=== PATIENT | female | born 1950 | race Caucasian/White ===

== ENCOUNTER 2018-01-08 21:40 | Inpatient (IN) | payer MEDICARE, OTHER ==
[~2018-01-08] VITALS: Ht 165.1 cm; Wt 61.8 kg
[2018-01-08] MEDS ORDERED: ONDANSETRON ODT 4 MG TAB PO ONE (22:00)
[2018-01-08] MEDS ORDERED: cloNIDine HCL 0.1 MG TAB PO ONE (22:00)
[2018-01-08 22:11] LABS: Basophils # (auto) 0.1 uL; Basophils % (auto) 1.8 % (0.0-2.0); Eosinophils # (auto) 0.1 uL; Eosinophils % (auto) 2.2 % (0.0-7.0); Hematocrit 48.6 % (36.0-46.0); Hemoglobin 16.6 g/dL (12.2-16.2); Lymphocytes # (auto) 2.1 uL; Lymphocytes % (auto) 42.4 % (10.0-50.0); Mean Corpuscular Hemoglobin 31.8 pg (28.0-32.0); Mean Corpuscular Hgb Conc. 34.1 g/dL (32.0-36.0); Mean Corpuscular Volume 93.2 fL (80.0-100.0); Monocytes # (auto) 0.4 uL; Monocytes % (auto) 8.6 % (0.0-12.0); Neutrophils # (auto) 2.2 uL; Nucleated Red Blood Cells % 0.3 %; Platelet Count (auto) 259 10^3/uL (140-450); Red Blood Cells 5.22 10^6/uL (4.0-5.20); Red Cell Distribution Width 13.4 % (11.8-14.3)
[2018-01-08 22:30] LABS: Albumin 3.6 g/dL (3.4-5.0); BUN/Creatinine Ratio 11.4; Bilirubin, Total 0.2 mg/dL (0.2-1.0); Calcium 8.5 mg/dL (8.5-10.1); Magnesium 2.5 mg/dL (1.6-2.6); Potassium 3.3 mmol/L (3.5-5.1); Total Protein 7.2 g/dL (6.4-8.2)
[2018-01-08 22:47] LABS: INR 0.94 (0.9-1.15); Partial Thromboplastin Time 24.5 sec (22.64-33.71); Prothrombin Time 10.2 sec (9.37-12.3)
[2018-01-09] MEDS ORDERED: ALPRAZolam 0.5 MG TAB PO ONE (01:30)
[2018-01-09] MEDS ORDERED: ENOXAPARIN SOD 80 MG/0.8ML SYRINGE SC ONE (02:30)
[2018-01-09] MEDS ORDERED: ASPirin 81 mg TAB PO ONE (02:30)
[2018-01-09] MEDS ORDERED: NITROGLYCERIN 0.4 MG SL TAB SL PRN (03:30)
[2018-01-09] MEDS ORDERED: ONDANSETRON HCL 4 MG/2 ML VIAL IV PRN (03:30)
[2018-01-09] MEDS ORDERED: ASPirin-EC 81 mg tab PO ONE (03:30)
[2018-01-09] MEDS ORDERED: MORPHINE SULFATE 4 MG/ML SYR/VIAL IV PRN (03:30)
[2018-01-09] MEDS ORDERED: ACETAMINOPHEN 500 MG TAB PO PRN (03:30)
[2018-01-09 04:13] LABS: Urine Bacteria NONE SEEN /hpf (None Seen); Urine Blood TRACE /uL (Negative); Urine Specific Gravity 1.003 (1.001-1.035); Urine WBC 1 /hpf (0 - 5)
[2018-01-09 04:15] LABS: Basophils # (auto) 0.1 uL; Basophils % (auto) 0.8 % (0.0-2.0); Eosinophils # (auto) 0.1 uL; Eosinophils % (auto) 0.9 % (0.0-7.0); Hematocrit 49.4 % (36.0-46.0); Lymphocytes # (auto) 1.7 uL; Lymphocytes % (auto) 27.3 % (10.0-50.0); Mean Corpuscular Hemoglobin 32.1 pg (28.0-32.0); Mean Corpuscular Hgb Conc. 34.3 g/dL (32.0-36.0); Mean Corpuscular Volume 93.5 fL (80.0-100.0); Monocytes # (auto) 0.5 uL; Monocytes % (auto) 7.4 % (0.0-12.0); Neutrophils % (auto) 63.6 % (37.0-80.0); Nucleated Red Blood Cells % 0.2 %; Platelet Count (auto) 273 10^3/uL (140-450); Red Blood Cells 5.29 10^6/uL (4.0-5.20); Red Cell Distribution Width 13.1 % (11.8-14.3); White Blood Cell 6.3 10^3/uL (4.4-10.8)
[2018-01-09] MEDS ORDERED: NICOTINE 14 MG/24HR TOPICAL PATCH TD ONE (04:30)
[2018-01-09 04:35] LABS: BUN/Creatinine Ratio 12.1; Calcium 8.7 mg/dL (8.5-10.1); Potassium 4.3 mmol/L (3.5-5.1)
[2018-01-09] MEDS: LORazepam 0.5 MG TAB PO PRN ×2 (05:25→15:42)
[2018-01-09] MEDS: METOPROLOL TARTRATE 25 MG TAB PO SCH ×2 (10:00→22:27)
[2018-01-09] MEDS ORDERED: IBUP800T24 PO (14:22)
[2018-01-09] MEDS ORDERED: ALPR0.5T7 PO (14:22)
[2018-01-09] MEDS: HYDROcodone-ACET 5/325MG TAB PO PRN (18:51)
[2018-01-09] MEDS ORDERED: ENOXAPARIN SOD 80 MG/0.8ML SYRINGE SC SCH (22:00)
[2018-01-09] MEDS: ATORVASTATIN 20 MG TAB PO SCH (22:26)
[2018-01-10 05:46] VITALS: BP 143/82
[2018-01-10] MEDS: LORazepam 0.5 MG TAB PO PRN (05:55)
[2018-01-10] MEDS: NICOTINE 14 MG/24HR TOPICAL PATCH TD SCH (06:18)
[2018-01-10 08:00] VITALS: BP 134/70
[2018-01-10 08:29] VITALS: BP 134/70
[2018-01-10] MEDS: ENOXAPARIN SOD 60 MG/0.6 ML SYRINGE SC SCH ×2 (10:00→21:49)
[2018-01-10] MEDS: HYDROcodone-ACET 5/325MG TAB PO PRN ×2 (10:10→21:53)
[2018-01-10] MEDS: METOPROLOL TARTRATE 25 MG TAB PO SCH ×2 (10:10→21:40)
[2018-01-10] MEDS ORDERED: MORPHINE SULFATE 4 MG/ML SYR/VIAL IV PRN (10:15)
[2018-01-10] MEDS ORDERED: ONDANSETRON HCL 4 MG/2 ML VIAL IV PRN (10:15)
[2018-01-10 12:38] VITALS: BP 130/80
[2018-01-10] MEDS ORDERED: ANGIOMAX 250 MG VIAL IV ONE (13:10)
[2018-01-10] MEDS ORDERED: fentaNYL CITRATE 100 MCG/2 ML VL ONE (13:10)
[2018-01-10] MEDS ORDERED: MIDAZOLAM HCL 1MG/1ML-2 ML VIAL ONE (13:10)
[2018-01-10] MEDS ORDERED: LIDOCAINE 2%HCL (LOCAL ANESTH.) INJ 20ML MDV ONE (13:11)
[2018-01-10] MEDS ORDERED: IOHEXOL 350 MG/ML 100ML IJ ONE (13:11)
[2018-01-10] MEDS ORDERED: TICAGRELOR 90 MG TAB ONE (13:35)
[2018-01-10] MEDS ORDERED: ASPirin 325 MG TAB ONE (13:35)
[2018-01-10 16:41] VITALS: BP 164/76
[2018-01-10 17:59] LABS: Cholesterol 272 mg/dL (< 200); HDL Cholesterol 39 mg/dL (40-59); LDL Cholesterol 185 mg/dL (< 100); Triglycerides 258 mg/dL (< 150)
[2018-01-10] MEDS: TICAGRELOR 90 MG TAB PO SCH (21:40)
[2018-01-10] MEDS: ATORVASTATIN 20 MG TAB PO SCH (21:40)
[2018-01-10 22:00] VITALS: BP 148/87
[2018-01-11 05:00] VITALS: BP 157/82
[2018-01-11] MEDS: LORazepam 0.5 MG TAB PO PRN (06:49)
[2018-01-11 08:00] VITALS: BP 131/88
[2018-01-11 08:24] VITALS: BP_SYST 131; BP_SYST 99; BP_DIAS 62; BP_DIAS 88
[2018-01-11] MEDS: TICAGRELOR 90 MG TAB PO SCH (09:52)
[2018-01-11] MEDS: NICOTINE 14 MG/24HR TOPICAL PATCH TD SCH (09:53)
[2018-01-11] MEDS: METOPROLOL TARTRATE 25 MG TAB PO SCH (09:53)
[2018-01-11] MEDS: ENOXAPARIN SOD 60 MG/0.6 ML SYRINGE SC SCH (09:54)
[2018-01-11] MEDS ORDERED: ASPirin 81 mg TAB PO SCH (10:00)
[2018-01-11 11:32] VITALS: BP 99/62
== END 2018-01-11 12:35 | disposition home or self-care (01) | DRG 247 ==
LOC: EDBD 21:40 → ER 21:46 → TELE 21:47 → TELE-CENTR 01-09 18:00
PROVIDERS: ADMIT Nurse Practitioner Family; ATTEND Family Medicine
PROC: 027034Z Dilation of Coronary Artery, One Artery with Drug-eluting Intraluminal Device, Percutaneous Approach (ICD-10-PCS; principal; 2018-01-10)
PROC: 4A023N7 Measurement of Cardiac Sampling and Pressure, Left Heart, Percutaneous Approach (ICD-10-PCS; 2018-01-10)
PROC: B2111ZZ Fluoroscopy of Multiple Coronary Arteries using Low Osmolar Contrast (ICD-10-PCS; 2018-01-10)
PROC: B2151ZZ Fluoroscopy of Left Heart using Low Osmolar Contrast (ICD-10-PCS; 2018-01-10)
DX: I21.4 Non-ST elevation (NSTEMI) myocardial infarction (principal); D75.1 Secondary polycythemia; E87.1 Hypo-osmolality and hyponatremia; E87.6 Hypokalemia; F17.210 Nicotine dependence, cigarettes, uncomplicated; F41.9 Anxiety disorder, unspecified; I25.10 Atherosclerotic heart disease of native coronary artery without angina pectoris; R51 Headache; Z71.6 Tobacco abuse counseling
CPT/HCPCS: 36415; 70450; 71045; 80048; 80053; 80061; 80320; 81001; 83735; 83880; 84484; 85025; 85610; 85730; 93005; 93306; 93458; 96372; 96374; 99152; C1874; J2250; Q0162

== ENCOUNTER → 2018-02-26 | Outpatient (CLI) | payer MEDICARE ==
[~2018-02-26] MED LIST: ALPR0.5T7 PO; IBUP800T24 PO
== END | disposition home or self-care (01) ==
LOC: Rad HDHVI 15:11
PROVIDERS: ATTEND Internal Medicine Cardiovascular Disease
DX: I20.9 Angina pectoris, unspecified (principal); E78.5 Hyperlipidemia, unspecified; F17.210 Nicotine dependence, cigarettes, uncomplicated
CPT/HCPCS: 93306

== ENCOUNTER → 2018-02-27 | Outpatient (CLI) | payer MEDICARE ==
[~2018-02-27] VITALS: Ht 170.2 cm; Wt 62.6 kg
[~2018-02-27] MED LIST changes: +ADENOSINE 53 MG in GIVE UN-DILUTED 0 ML IV ONE; +ADENOSINE 90 MG/30 ML INJ IV ONE
== END | disposition home or self-care (01) ==
LOC: Rad HDHVI 09:05
PROVIDERS: ATTEND Internal Medicine Cardiovascular Disease
DX: I20.9 Angina pectoris, unspecified (principal); E78.5 Hyperlipidemia, unspecified; F17.210 Nicotine dependence, cigarettes, uncomplicated
CPT/HCPCS: 78452; 93005; 96374; 96375; A9500; J0153

== ENCOUNTER → 2018-08-07 | Outpatient (CLI) | payer MEDICARE ==
[~2018-08-07] MED LIST changes: -ADENOSINE 53 MG in GIVE UN-DILUTED 0 ML IV ONE; -ADENOSINE 90 MG/30 ML INJ IV ONE
[2018-08-07 13:01] LABS: Urine Blood Negative /uL (Negative); Urine Specific Gravity 1.019 (1.001-1.035)
[2018-08-07 13:06] LABS: Basophils # (auto) 0 uL; Basophils % (auto) 0.3 % (0.0-2.0); Eosinophils # (auto) 0.1 uL; Hematocrit 43.9 % (36.0-46.0); Hemoglobin 15.1 g/dL (12.2-16.2); Lymphocytes # (auto) 1.1 uL; Lymphocytes % (auto) 21.9 % (10.0-50.0); Mean Corpuscular Hemoglobin 33.4 pg (28.0-32.0); Mean Corpuscular Hgb Conc. 34.4 g/dL (32.0-36.0); Mean Corpuscular Volume 97.2 fL (80.0-100.0); Monocytes # (auto) 0.4 uL; Monocytes % (auto) 7.1 % (0.0-12.0); Neutrophils # (auto) 3.5 uL; Neutrophils % (auto) 69.7 % (37.0-80.0); Nucleated Red Blood Cells % 0.2 %; Platelet Count (auto) 381 10^3/uL (140-450); Red Blood Cells 4.51 10^6/uL (4.0-5.20); Red Cell Distribution Width 16.1 % (11.8-14.3)
[2018-08-07 13:09] LABS: INR 0.92 (0.9-1.15); Partial Thromboplastin Time 27.2 sec (23.78-33.04); Prothrombin Time 9.9 sec (9.27-12.13)
[2018-08-07 14:13] LABS: Free T4 (Free Thyroxine) 1.05 ng/dL (0.89-1.76)
[2018-08-07 14:17] LABS: Albumin 4.4 g/dL (3.4-5.0); BUN/Creatinine Ratio 23.9; Bilirubin, Total 0.7 mg/dL (0.2-1.0); Calcium 9.1 mg/dL (8.5-10.1); Potassium 3.6 mmol/L (3.5-5.1); Total Protein 8.2 g/dL (6.4-8.2)
== END | disposition home or self-care (01) ==
LOC: LAB 10:05
PROVIDERS: ATTEND Internal Medicine Cardiovascular Disease
DX: Z00.01 Encounter for general adult medical examination with abnormal findings (principal); R79.1 Abnormal coagulation profile; E03.9 Hypothyroidism, unspecified; E11.9 Type 2 diabetes mellitus without complications; E55.9 Vitamin D deficiency, unspecified; D51.9 Vitamin B12 deficiency anemia, unspecified; N39.0 Urinary tract infection, site not specified
CPT/HCPCS: 36415; 80053; 80061; 81003; 82306; 82607; 83036; 84439; 84443; 85025; 85610; 85730; 87086

== ENCOUNTER → 2018-12-30 | Outpatient (CLI) | payer MEDICARE ==
[~2018-12-30] MED LIST changes: +MVI in SODIUM CHLORIDE 0.9% 1,000 ML IVB ONE; +MVI in SODIUM CHLORIDE 0.9% 1,010 ML ONE
[2018-12-30 15:43] VITALS: BP 106/54
--- NOTE | 2018-12-30 15:43 | NUR ---
TO CLINIC FOR IV HYDRATION. IV insertion IV access obtained, via clean sterile technique by inserting 22 gauge catheter at after attempt(s). IV secured properly. No trauma to site. Patient tolerated procedure well.MEDICATED PER ORDER AND TOLERATED WELL. PT REPORTS ANXIETY AND HAS NEW MEDICATION SAMPLES LINZESS GIVEN BY MD. SEE FREQUENT VITAL SIGNS. TOLERATED INFUSION WELL. PT WAS AWAKE DURING ENTIRE INFUSION, TALKING ON PHONE AT TIMES. PHONE CONVERSATIONS ABRUPT AND LOUD WITH OCCASIONAL FOUL LANGUAGE. UPON COMPLETION OF INFUSION, PT REPORTS DIZZINESS STILL. NO APPARENT DISTRESS NOTED OTHER THAN STATED. DISCHARGED TO CARE OF FAMILY. PT HAS INSTRUCTIONS TO TAKE ONLY 1/2 DOSE OF HER BP MED [facility]BYCLOR AND TO RETURN TO CLINIC NEXT SUNDAY FOR FOLLOWUP, SOONER IF NEEDED. REPEAT BACK INSTRUCTIONS OBTAINED. MEDICATION ADMINISTRATION 0.9 NS WITH MVI 1 LITER START AT 1245/STOP AT 1543
== END | disposition home or self-care (01) ==
LOC: CHF HDHVI 12:41
PROVIDERS: ATTEND Internal Medicine Cardiovascular Disease
DX: E86.0 Dehydration (principal); R42 Dizziness and giddiness; R53.83 Other fatigue; I25.2 Old myocardial infarction; I25.10 Atherosclerotic heart disease of native coronary artery without angina pectoris; E11.9 Type 2 diabetes mellitus without complications; E03.9 Hypothyroidism, unspecified; F41.9 Anxiety disorder, unspecified; E78.5 Hyperlipidemia, unspecified; F17.210 Nicotine dependence, cigarettes, uncomplicated
CPT/HCPCS: 96365; 96366; G0463; J3411; J3475

== ENCOUNTER → 2019-01-06 | Outpatient (CLI) | payer MEDICARE ==
[~2019-01-06] MED LIST changes: -MVI in SODIUM CHLORIDE 0.9% 1,000 ML IVB ONE; -MVI in SODIUM CHLORIDE 0.9% 1,010 ML ONE; +SODIUM CHLORIDE 0.9% 1,000 ML IV ONE
[2019-01-06 11:50] VITALS: BP 80/53
--- NOTE | 2019-01-06 11:50 | NUR ---
IV insertion IV access obtained, via clean sterile technique by inserting 22 gauge catheter at RFA after 1 attempt(s). IV secured properly. No trauma to site. Patient tolerated procedure well.
--- NOTE | 2019-01-06 15:25 | NUR ---
IV removal IV DC'd with sterile technique, catheter fully intact. Pressure dressing applied to site. Patient tolerated procedure well.
[2019-01-06 15:30] VITALS: BP 122/68
--- NOTE | 2019-01-06 15:30 | NUR ---
[facility] Discharge Instructions See e-MAR for any mediations given with this visit. Patient education given on disease process. Patient verbalized understanding. Previous labs reviewed. Patient discharged in stable condition with after care instructions and follow up appointment. NOTE NS [id number] ADMIN BY YULI RAMOS.
== END | disposition home or self-care (01) ==
LOC: CHF HDHVI 11:23
PROVIDERS: ATTEND Internal Medicine Cardiovascular Disease
DX: E86.0 Dehydration (principal); I95.9 Hypotension, unspecified; E03.9 Hypothyroidism, unspecified; E78.5 Hyperlipidemia, unspecified; F41.9 Anxiety disorder, unspecified; I25.10 Atherosclerotic heart disease of native coronary artery without angina pectoris; I25.2 Old myocardial infarction; E11.9 Type 2 diabetes mellitus without complications; F17.210 Nicotine dependence, cigarettes, uncomplicated
CPT/HCPCS: 96360; 96361; G0463; J7030

== ENCOUNTER → 2019-05-16 | Outpatient (CLI) | payer MEDICARE ==
[~2019-05-16] MED LIST changes: -SODIUM CHLORIDE 0.9% 1,000 ML IV ONE
== END | disposition home or self-care (01) ==
LOC: Rad HDHVI 10:33
PROVIDERS: ATTEND Internal Medicine Cardiovascular Disease
DX: I25.5 Ischemic cardiomyopathy (principal); I20.9 Angina pectoris, unspecified; I95.9 Hypotension, unspecified
CPT/HCPCS: 93306

== ENCOUNTER → 2020-06-07 | Outpatient (CLI) | payer MEDICARE | END | disposition home or self-care (01) | LOC: Rad HDHVI 11:50 | PROVIDERS: ATTEND Internal Medicine Cardiovascular Disease | DX: M76.892 Other specified enthesopathies of left lower limb, excluding foot (principal); M25.462 Effusion, left knee; M25.762 Osteophyte, left knee; M85.88 Other specified disorders of bone density and structure, other site | CPT/HCPCS: 73700 ==

== ENCOUNTER → 2020-06-14 | Outpatient (CLI) | payer MEDICARE ==
[2020-06-14 12:20] LABS: Urine Blood 1+ /uL (Negative); Urine Specific Gravity 1.008 (1.001-1.035)
[2020-06-14 12:21] LABS: Basophils # (auto) 0 10 ^3/uL (0-0.2); Basophils % (auto) 0.4 % (0.0-2.0); Eosinophils # (auto) 0 10 ^3/uL (0-0.8); Lymphocytes # (auto) 1.6 10 ^3/uL (0.4-5.4); Monocytes # (auto) 0.4 10 ^3/uL (0-1.3); Neutrophils # (auto) 5.5 10 ^3/uL (1.6-8.6); White Blood Cell 7.5 10^3/uL (4.4-10.8)
[2020-06-14 12:22] LABS: Albumin 3.7 g/dL (3.4-5.0)
[2020-06-14 12:23] LABS: Eosinophils % (auto) 0.5 % (0.0-7.0); Hemoglobin 12.4 g/dL (12.2-16.2); Lymphocytes % (auto) 20.9 % (10.0-50.0); Mean Corpuscular Hemoglobin 34.1 pg (28.0-32.0); Mean Corpuscular Hgb Conc. 33.5 g/dL (32.0-36.0); Mean Corpuscular Volume 101.9 fL (80.0-100.0); Monocytes % (auto) 4.9 % (0.0-12.0); Neutrophils % (auto) 73.3 % (37.0-80.0); Nucleated Red Blood Cells % 0.1 %; Platelet Count (auto) 236 10^3/uL (140-450); Red Blood Cells 3.63 10^6/uL (4.0-5.20); Red Cell Distribution Width 14.4 % (11.8-14.3)
[2020-06-14 12:29] LABS: BUN/Creatinine Ratio 7.1; Bilirubin, Total 0.4 mg/dL (0.2-1.0); Calcium 8.6 mg/dL (8.5-10.1); Total Protein 6.6 g/dL (6.4-8.2)
[2020-06-14 12:33] LABS: Free T4 (Free Thyroxine) 0.77 ng/dL (0.89-1.76)
[2020-06-14 14:05] LABS: Potassium 2.2 mmol/L (3.5-5.1)
== END | disposition home or self-care (01) ==
LOC: LAB 10:42
PROVIDERS: ATTEND Internal Medicine Cardiovascular Disease
DX: E03.9 Hypothyroidism, unspecified (principal); K90.9 Intestinal malabsorption, unspecified; N39.0 Urinary tract infection, site not specified; D51.9 Vitamin B12 deficiency anemia, unspecified; Z00.00 Encounter for general adult medical examination without abnormal findings; Z79.899 Other long term (current) drug therapy
CPT/HCPCS: 36415; 80053; 80061; 81003; 82306; 82607; 83036; 84439; 84443; 85025

== ENCOUNTER → 2020-06-17 | Outpatient (CLI) | payer MEDICARE ==
[2020-06-17 11:39] LABS: Urine Blood 1+ /uL (Negative)
== END | disposition home or self-care (01) ==
LOC: Rad HDHVI 09:55
PROVIDERS: ATTEND Internal Medicine Cardiovascular Disease
DX: E87.6 Hypokalemia (principal); N39.0 Urinary tract infection, site not specified
CPT/HCPCS: 36415; 81003; 84132; 93306

== ENCOUNTER → 2020-07-23 | Outpatient (CLI) | payer MEDICARE | END | disposition home or self-care (01) | LOC: Rad HDHVI 09:45 | PROVIDERS: ATTEND Internal Medicine Cardiovascular Disease | DX: I67.2 Cerebral atherosclerosis (principal); I67.82 Cerebral ischemia; R51 Headache | CPT/HCPCS: 70450 ==

== ENCOUNTER → 2020-08-02 | Outpatient (CLI) | payer MEDICARE ==
[2020-08-02 12:06] LABS: Potassium 4.2 mmol/L (3.5-5.1)
[2020-08-02 12:13] LABS: BUN/Creatinine Ratio 8.3; Calcium 9.1 mg/dL (8.5-10.1)
== END | disposition home or self-care (01) ==
LOC: LAB 10:32
PROVIDERS: ATTEND Internal Medicine Cardiovascular Disease
DX: I10 Essential (primary) hypertension (principal); E87.6 Hypokalemia
CPT/HCPCS: 36415; 80048

== ENCOUNTER 2023-12-09 18:11 | Emergency (ER) | payer MEDICARE, OTHER ==
[~2023-12-09] VITALS: Ht 170.2 cm; Wt 70.0 kg
[~2023-12-09 18:11] MED LIST changes: +IBUP-1456 PO; -IBUP800T24 PO
[2023-12-09 20:00] LABS: Basophils # (auto) 0 10 ^3/uL (0-0.2); Basophils % (auto) 0.3 % (0.0-2.0); Eosinophils # (auto) 0 10 ^3/uL (0-0.8); Eosinophils % (auto) 0.6 % (0.0-7.0); Hematocrit 50.9 % (36.0-46.0); Hemoglobin 17.1 g/dL (12.2-16.2); Lymphocytes # (auto) 1.8 10 ^3/uL (0.4-5.4); Lymphocytes % (auto) 23.7 % (10.0-50.0); Mean Corpuscular Hemoglobin 33.8 pg (28.0-32.0); Mean Corpuscular Hgb Conc. 33.6 g/dL (32.0-36.0); Mean Corpuscular Volume 100.5 fL (80.0-100.0); Monocytes # (auto) 0.6 10 ^3/uL (0-1.3); Monocytes % (auto) 7.9 % (0.0-12.0); Neutrophils % (auto) 67.5 % (37.0-80.0); Nucleated Red Blood Cells % 0.1 %; Red Blood Cells 5.06 10^6/uL (4.0-5.20); Red Cell Distribution Width 14.8 % (11.8-14.3); White Blood Cell 7.4 10^3/uL (4.4-10.8)
[2023-12-09 20:24] LABS: Alanine Aminotransferase 30 U/L (7-40); Alkaline Phosphatase 111 U/L (46-116); Anion Gap 2 (5-15); Aspartate Aminotransferase 42 U/L (13-40); BUN/Creatinine Ratio 12.5 (10.0-20.0); Blood Urea Nitrogen 8 mg/dL (9-23); Calcium 9.3 mg/dL (8.7-10.4); Carbon Dioxide 30 mmol/L (20-30); Chloride 100 mmol/L (98-107); Glucose 106 mg/dL (74-106); Magnesium 1.6 mg/dL (1.6-2.6); Potassium 3.3 mmol/L (3.5-5.1); Sodium 132 mmol/L (136-145)
[2023-12-09 20:25] LABS: Bilirubin, Total 0.8 mg/dL (0.2-1.0); Phosphorus 3.2 mg/dL (2.4-5.1); Total Protein 6.2 g/dL (5.7-8.2)
[2023-12-09] MEDS ORDERED: POTASSIUM CHL 20 Meq TABLET PO ONE (22:15)
[2023-12-09] MEDS ORDERED: BACL20TA PO (22:18)
[2023-12-09 22:45] VITALS: BP 131/74; PULSE 102; RESP 16; TEMP 98.1; O2SAT 99
[2023-12-09] MEDS ORDERED: LORazepam 0.5 MG TAB PO ONE (22:45)
[2023-12-10] MEDS ORDERED: LORA-655 PO (05:52)
== END 2023-12-09 23:50 | disposition home or self-care (01) ==
LOC: ER 18:11 → EDBD 18:11 → ER 23:50
DX: R25.3 Fasciculation (principal); I10 Essential (primary) hypertension; F17.210 Nicotine dependence, cigarettes, uncomplicated; Z79.1 Long term (current) use of non-steroidal anti-inflammatories (NSAID); Z79.899 Other long term (current) drug therapy; Z88.8 Allergy status to other drugs, medicaments and biological substances
CPT/HCPCS: 36415; 70450; 80053; 83735; 84100; 85025; 93005

== ENCOUNTER 2023-12-10 01:35 | Emergency (ER) | payer OTHER ==
[~2023-12-10] VITALS: Ht 167.6 cm; Wt 59.0 kg
[~2023-12-10 01:35] MED LIST changes: +BACL20TA PO
[2023-12-10 01:58] VITALS: PULSE 94; RESP 21; O2SAT 90
[2023-12-10] MEDS ORDERED: LORazepam 2MG/ML-1ML VIAL IM ONE (04:15)
[2023-12-10] MEDS ORDERED: IOHEXOL 350 MG/ML 100ML IJ ONE (05:49)
[2023-12-10] MEDS ORDERED: LORA-655 PO (05:52)
[2023-12-10] MEDS ORDERED: LORazepam 2MG/ML-1ML VIAL IV ONE (06:00)
[2023-12-10 06:29] VITALS: BP 118/49; PULSE 101; RESP 21; TEMP 97.5; O2SAT 96
== END 2023-12-10 07:07 | disposition home or self-care (01) ==
LOC: ER 01:35 → EDBD 01:35 → ER 07:05
DX: N28.89 Other specified disorders of kidney and ureter (principal); F41.9 Anxiety disorder, unspecified; R55 Syncope and collapse; I10 Essential (primary) hypertension; F17.210 Nicotine dependence, cigarettes, uncomplicated; F32.9 Major depressive disorder, single episode, unspecified
CPT/HCPCS: 74177; 93005; 99285; Q9967

== ENCOUNTER 2024-01-19 08:54 | Inpatient (IN) | payer OTHER ==
[~2024-01-19] VITALS: Ht 167.6 cm; Wt 56.6 kg
[~2024-01-19 08:54] MED LIST changes: +LORA-655 PO
[2024-01-19 09:17] VITALS: PULSE 96; RESP 12; O2SAT 93
[2024-01-19 09:51] LABS: Hematocrit 45.9 % (36.0-46.0); Hemoglobin 15.6 g/dL (12.2-16.2); Mean Corpuscular Hemoglobin 32.8 pg (28.0-32.0); Mean Corpuscular Hgb Conc. 33.9 g/dL (32.0-36.0); Mean Corpuscular Volume 96.7 fL (80.0-100.0); Red Blood Cells 4.75 10^6/uL (4.0-5.20)
[2024-01-19 10:01] LABS: Chloride 91 mmol/L (98-107); Potassium 3.5 mmol/L (3.5-5.1); Sodium 127 mmol/L (136-145)
[2024-01-19 10:02] LABS: Anion Gap 5 (5-15); Calcium 9.2 mg/dL (8.5-10.1); Carbon Dioxide 31 mmol/L (20-30)
[2024-01-19 10:04] LABS: Basophils % (manual) 0 (0.0-2.0); Eosinophils % (manual) 0 (0-7); Metamyelocytes % 0; Monocytes % (manual) 0 (0-12); Reactive Lymphocytes 0
[2024-01-19 10:07] LABS: Glucose 101 mg/dL (74-106)
[2024-01-19 10:08] LABS: Blood Alcohol < 3.0 mg/dL (<10)
[2024-01-19 10:10] LABS: BUN/Creatinine Ratio 7.7 (10.0-20.0); Blood Urea Nitrogen < 5 mg/dL (9-23)
[2024-01-19] MEDS: THIAMINE 100mg/ml INJ (200mg/2ml VIAL) IV ONE (10:25)
[2024-01-19] MEDS: SODIUM CHLORIDE 0.9% 1,000 ML IV ONE (10:25)
[2024-01-19 10:31] LABS: Band Neutrophils % (manual) 2; Blast Cells 1; Lymphocytes % (manual) 3 (10.0-50.0); Myelocytes % 1; Platelet Estimate Adequate; Promyelocytes % 1
[2024-01-19] MEDS ORDERED: ONDANSETRON HCL 4 MG/2 ML VIAL IV PRN (12:45)
[2024-01-19 13:23] LABS: INR 1.05 (0.9-1.15)
[2024-01-19] MEDS: SODIUM CHLORIDE 0.9% 1,000 ML IV SCH (13:52)
[2024-01-19] MEDS ORDERED: LORazepam 2MG/ML-1ML VIAL IV PRN (15:45)
[2024-01-19] MEDS: LORazepam 2MG/ML-1ML VIAL IV PRN (15:50)
[2024-01-19] MEDS: GADOTERATE MEG 7.5 MMOL/15ml INJ (0.5MMOL/ml) IV ONE (16:41)
[2024-01-19 17:30] VITALS: BP 124/65; PULSE 86; RESP 18; TEMP 97.5; O2SAT 96
[2024-01-19 17:57] VITALS: PULSE 86; RESP 18; O2SAT 96
[2024-01-19] MEDS: FOLIC ACID 1 MG, MAGNESIUM SULF SDV 50% 8 MEQ, MULTIPLE VITAMIN 10 ML, THIAMINE INJ 100... INJ ONE (18:07)
[2024-01-19 20:00] VITALS: PULSE 86
[2024-01-19] MEDS: MORPHINE SULFATE INJ 2 MG/ml SYRG IV PRN (20:57)
[2024-01-19 21:32] VITALS: BP 127/65; PULSE 85; RESP 17; TEMP 97.4; O2SAT 94
[2024-01-19] MEDS: ceFAZolin 1GM/50ML 50 ML IV SCH (22:08)
[2024-01-20] VITALS (10 sets, daily range): BP systolic 93–136; BP diastolic 40–76; PULSE 73–108; RESP 16–20; TEMP 97.6–98.9; O2SAT 90–96
[2024-01-20 05:40] LABS: Alanine Aminotransferase 17 U/L (7-40); Albumin 2.9 g/dL (3.2-4.8); Alkaline Phosphatase 114 U/L (46-116); Anion Gap 9 (5-15); Aspartate Aminotransferase 27 U/L (13-40); Calcium 7.9 mg/dL (8.7-10.4); Carbon Dioxide 23 mmol/L (20-30); Chloride 99 mmol/L (98-107); Glucose 66 mg/dL (74-106); Potassium 3.5 mmol/L (3.5-5.1); Sodium 131 mmol/L (136-145)
[2024-01-20 05:41] LABS: Bilirubin, Total 0.7 mg/dL (0.2-1.0); Total Protein 4.8 g/dL (5.7-8.2)
[2024-01-20 05:57] LABS: BUN/Creatinine Ratio 9.4 (10.0-20.0); Blood Urea Nitrogen < 5 mg/dL (9-23)
[2024-01-20 06:19] LABS: Basophils # (auto) 0 10 ^3/uL (0-0.2); Basophils % (auto) 0.3 % (0.0-2.0); Eosinophils # (auto) 0 10 ^3/uL (0-0.8); Eosinophils % (auto) 0.3 % (0.0-7.0); Hemoglobin 13.6 g/dL (12.2-16.2); Lymphocytes # (auto) 1.5 10 ^3/uL (0.4-5.4); Lymphocytes % (auto) 19.3 % (10.0-50.0); Mean Corpuscular Hemoglobin 32.9 pg (28.0-32.0); Mean Corpuscular Hgb Conc. 33.1 g/dL (32.0-36.0); Mean Corpuscular Volume 99.4 fL (80.0-100.0); Monocytes # (auto) 0.5 10 ^3/uL (0-1.3); Monocytes % (auto) 6.2 % (0.0-12.0); Neutrophils # (auto) 5.7 10 ^3/uL (1.6-8.6); Neutrophils % (auto) 73.9 % (37.0-80.0); Nucleated Red Blood Cells % 0.1 %; Red Blood Cells 4.13 10^6/uL (4.0-5.20); Red Cell Distribution Width 13.7 % (11.8-14.3); White Blood Cell 7.7 10^3/uL (4.4-10.8)
[2024-01-20] MEDS ORDERED: TRANEXAMIC ACID 20 ML ONE (06:43)
[2024-01-20] MEDS ORDERED: fentaNYL CITRATE 100 MCG/2 ML VL ONE (07:07)
[2024-01-20] MEDS ORDERED: MIDAZOLAM HCL 2MG/2ML 2ml VIAL (1mg/ml) ONE (07:07)
[2024-01-20] MEDS ORDERED: PROPOFOL 10 MG/ML 20 ML IV ONE (07:10)
[2024-01-20] MEDS ORDERED: ePHEDrine SULFATE 50 MG/ML AMP ONE (07:37)
[2024-01-20] MEDS: BUPIVACAINE 0.25% INJ 50ML VIAL ONE (08:20)
[2024-01-20] MEDS: MORPHINE SULF PF 5 MG/10 ML VIAL ONE (08:21)
[2024-01-20] MEDS: KETOROLAC TROMETH 30 MG/ML 1ML VIAL ONE (08:21)
[2024-01-20] MEDS: VANCOMYCIN HCL 1000 MG VL ONE (08:22)
[2024-01-20] MEDS ORDERED: BUPIVACAINE HCL 50 ML ONE (08:36)
[2024-01-20] MEDS ORDERED: ONDANSETRON HCL 4 MG/2 ML VIAL IV PRN (09:15)
[2024-01-20] MEDS: ENOXAPARIN SOD 40 MG/0.4 ML SYRINGE SC SCH (10:55)
[2024-01-20 11:00] LABS: Urine Bacteria NONE SEEN /hpf (None Seen); Urine Blood 1+ /uL (Negative); Urine Clarity Clear (Clear); Urine Color Yellow (Yellow); Urine Protein, UAD TRACE (Negative); Urine Specific Gravity 1.018 (1.001-1.035); Urine Urobilinogen Normal (Negative); Urine WBC 4 /hpf (0 - 5); Urine pH 7.5 (5.0-8.0)
[2024-01-20 11:19] LABS: Creatinine, Urine 81.45 mg/dL (30.0-125.0)
[2024-01-20] MEDS: FOLIC ACID 1 MG, MAGNESIUM SULF SDV 50% 8 MEQ, MULTIPLE VITAMIN 10 ML, THIAMINE INJ 100... INJ SCH (19:28)
[2024-01-21] VITALS (7 sets, daily range): BP systolic 125–144; BP diastolic 54–72; PULSE 81–98; RESP 17–19; TEMP 97.9–99.4; O2SAT 93–97
[2024-01-21 06:37] LABS: Chloride 105 mmol/L (98-107); Potassium 3.6 mmol/L (3.5-5.1); Sodium 134 mmol/L (136-145)
[2024-01-21 06:38] LABS: Anion Gap 2 (5-15); Calcium 7.7 mg/dL (8.5-10.1); Carbon Dioxide 27 mmol/L (20-30)
[2024-01-21 06:43] LABS: BUN/Creatinine Ratio 18.4 (10.0-20.0); Blood Urea Nitrogen 9 mg/dL (9-23); Glucose 92 mg/dL (74-106)
[2024-01-21 06:58] LABS: Basophils # (auto) 0 10 ^3/uL (0-0.2); Basophils % (auto) 0.4 % (0.0-2.0); Eosinophils # (auto) 0 10 ^3/uL (0-0.8); Eosinophils % (auto) 0.8 % (0.0-7.0); Hematocrit 30.4 % (36.0-46.0); Hemoglobin 10.5 g/dL (12.2-16.2); Lymphocytes # (auto) 1.4 10 ^3/uL (0.4-5.4); Lymphocytes % (auto) 23.4 % (10.0-50.0); Mean Corpuscular Hgb Conc. 34.4 g/dL (32.0-36.0); Mean Corpuscular Volume 98.8 fL (80.0-100.0); Monocytes # (auto) 0.5 10 ^3/uL (0-1.3); Monocytes % (auto) 8.4 % (0.0-12.0); Red Blood Cells 3.07 10^6/uL (4.0-5.20); Red Cell Distribution Width 13.8 % (11.8-14.3); White Blood Cell 5.9 10^3/uL (4.4-10.8)
[2024-01-21] MEDS: DOCUSATE SOD 100 MG CAP PO PRN (10:06)
[2024-01-22 00:46] VITALS: BP 129/61; PULSE 94; RESP 19; O2SAT 95
[2024-01-22 05:03] VITALS: BP 139/62; PULSE 92; RESP 17; O2SAT 95
[2024-01-22 06:01] LABS: Basophils # (auto) 0 10 ^3/uL (0-0.2); Basophils % (auto) 0.5 % (0.0-2.0); Eosinophils # (auto) 0.1 10 ^3/uL (0-0.8); Hematocrit 31.1 % (36.0-46.0); Hemoglobin 10.4 g/dL (12.2-16.2); Lymphocytes # (auto) 1.3 10 ^3/uL (0.4-5.4); Lymphocytes % (auto) 19.5 % (10.0-50.0); Mean Corpuscular Hemoglobin 33.3 pg (28.0-32.0); Mean Corpuscular Hgb Conc. 33.5 g/dL (32.0-36.0); Mean Corpuscular Volume 99.1 fL (80.0-100.0); Monocytes # (auto) 0.5 10 ^3/uL (0-1.3); Monocytes % (auto) 7.8 % (0.0-12.0); Neutrophils # (auto) 4.9 10 ^3/uL (1.6-8.6); Neutrophils % (auto) 71.2 % (37.0-80.0); Red Blood Cells 3.13 10^6/uL (4.0-5.20); Red Cell Distribution Width 13.8 % (11.8-14.3); White Blood Cell 6.9 10^3/uL (4.4-10.8)
[2024-01-22 06:04] LABS: Chloride 104 mmol/L (98-107); Potassium 3.9 mmol/L (3.5-5.1); Sodium 133 mmol/L (136-145)
[2024-01-22 06:05] LABS: Anion Gap 4 (5-15); Carbon Dioxide 25 mmol/L (20-30)
[2024-01-22 06:10] LABS: Glucose 132 mg/dL (74-106)
[2024-01-22 06:31] LABS: Blood Urea Nitrogen < 5 mg/dL (9-23)
[2024-01-22 08:00] VITALS: BP 129/61; PULSE 94; RESP 19; TEMP 98.7; O2SAT 95
[2024-01-22 13:12] VITALS: BP 129/61; PULSE 94; RESP 19; TEMP 98.7; O2SAT 95
[2024-01-22] MEDS ORDERED: CEPH250C PO (13:39)
== END 2024-01-22 14:00 | disposition home health service (06) | DRG 521 ==
LOC: EDBD 08:54 → ER 08:54 → OVERFLOW 13:01 → CENTRAL 17:45 → TELE-CENTR 21:35 → CENTRAL 01-21 16:33
PROVIDERS: ADMIT Internal Medicine Pulmonary Disease; ATTEND Internal Medicine Pulmonary Disease
PROC: 0SRS0J9 Replacement of Left Hip Joint, Femoral Surface with Synthetic Substitute, Cemented, Open Approach (ICD-10-PCS; principal; 2024-01-20 07:23)
DX: S72.012A Unspecified intracapsular fracture of left femur, initial encounter for closed fracture (principal); E43 Unspecified severe protein-calorie malnutrition; C40.22 Malignant neoplasm of long bones of left lower limb; E87.1 Hypo-osmolality and hyponatremia; F03.93 Unspecified dementia, unspecified severity, with mood disturbance; F03.94 Unspecified dementia, unspecified severity, with anxiety; F10.139 Alcohol abuse with withdrawal, unspecified; M62.838 Other muscle spasm; D72.829 Elevated white blood cell count, unspecified; F31.9 Bipolar disorder, unspecified; I10 Essential (primary) hypertension; G40.909 Epilepsy, unspecified, not intractable, without status epilepticus; M81.0 Age-related osteoporosis without current pathological fracture; F20.9 Schizophrenia, unspecified; F17.210 Nicotine dependence, cigarettes, uncomplicated; L98.9 Disorder of the skin and subcutaneous tissue, unspecified; Z95.5 Presence of coronary angioplasty implant and graft; Y90.0 Blood alcohol level of less than 20 mg/100 ml; W18.39XA Other fall on same level, initial encounter; Y93.89 Activity, other specified; Y92.89 Other specified places as the place of occurrence of the external cause; Y99.8 Other external cause status; Z68.20 Body mass index [BMI] 20.0-20.9, adult
CPT/HCPCS: 36415; 70450; 71045; 72170; 72192; 80048; 80053; 80320; 81001; 82140; 82570; 82607; 82962; 83935; 84300; 84484; 85007; 85025; 85027; 85610; 86850; 86900; 86901; 87040; 93005; 93306; 97110; 97116; 97163; 97530; 99291; G0378; J1885; J2250; J2704; J3490

== ENCOUNTER 2024-02-22 09:52 | Inpatient (IN) | payer OTHER ==
[~2024-02-22] VITALS: Ht 167.6 cm; Wt 64.9 kg
[~2024-02-22 09:52] MED LIST changes: +CEPH250C PO
[2024-02-22 14:38] LABS: Basophils # (auto) 0 10 ^3/uL (0-0.2); Basophils % (auto) 0.5 % (0.0-2.0); Eosinophils # (auto) 0.2 10 ^3/uL (0-0.8); Eosinophils % (auto) 1.9 % (0.0-7.0); Hematocrit 37.8 % (36.0-46.0); Hemoglobin 12.6 g/dL (12.2-16.2); Lymphocytes % (auto) 22.8 % (10.0-50.0); Mean Corpuscular Hemoglobin 32.7 pg (28.0-32.0); Mean Corpuscular Hgb Conc. 33.2 g/dL (32.0-36.0); Mean Corpuscular Volume 98.2 fL (80.0-100.0); Monocytes # (auto) 0.7 10 ^3/uL (0-1.3); Monocytes % (auto) 8.1 % (0.0-12.0); Neutrophils # (auto) 5.8 10 ^3/uL (1.6-8.6); Neutrophils % (auto) 66.7 % (37.0-80.0); Red Blood Cells 3.85 10^6/uL (4.0-5.20); Red Cell Distribution Width 14.8 % (11.8-14.3); White Blood Cell 8.7 10^3/uL (4.4-10.8)
[2024-02-22 14:45] LABS: Chloride 106 mmol/L (98-107); Potassium 4.5 mmol/L (3.5-5.1); Sodium 134 mmol/L (136-145)
[2024-02-22 14:46] LABS: Anion Gap 1 (5-15); Calcium 10.7 mg/dL (8.7-10.4); Carbon Dioxide 27 mmol/L (20-30)
[2024-02-22 14:51] LABS: BUN/Creatinine Ratio 39.6 (10.0-20.0); Blood Urea Nitrogen 36 mg/dL (9-23); Glucose 102 mg/dL (74-106)
[2024-02-22] MEDS: ACETAMINOPHEN 500 MG TAB PO ONE (15:54)
[2024-02-22] MEDS ORDERED: ACETAMINOPHEN 325 MG TAB PO PRN ×2 (18:30→19:15)
[2024-02-22] MEDS ORDERED: ALPRAZolam 0.5 MG TAB PO PRN (18:45)
[2024-02-22 18:51] LABS: CRP High Sensitivity 0.16 mg/dL (<1.0)
[2024-02-22] MEDS ORDERED: BACLOFEN 10 MG TAB PO PRN (19:15)
[2024-02-22] MEDS: PIPERACILLIN-TAZOB 3.375GM 100 ML IV ONE (20:40)
[2024-02-22] MEDS: KETOROLAC TROMETH 30 MG/ML 1ML VIAL IV ONE (20:41)
[2024-02-22 20:49] LABS: Erythrocyte Sedimentation Rate 43 mm/hr (0-20)
[2024-02-22] MEDS ORDERED: IBUPROFEN 800 MG TAB PO PRN (22:00)
[2024-02-22 22:25] VITALS: BP 99/40; PULSE 104; RESP 20; TEMP 97.8; O2SAT 93
[2024-02-22 22:28] VITALS: BP 99/40; PULSE 104; PULSE 60; RESP 20; TEMP 97.8; O2SAT 95
[2024-02-22] MEDS: HYDROcodone-ACET 5/325MG TAB PO PRN (23:14)
[2024-02-22] MEDS: PIPERACILLIN-TAZOB 3.375GM 100 ML IV SCH (23:16)
[2024-02-23 05:00] VITALS: BP 98/44; PULSE 75; RESP 14; TEMP 98; O2SAT 92
[2024-02-23 06:43] LABS: Basophils # (auto) 0 10 ^3/uL (0-0.2); Basophils % (auto) 0.6 % (0.0-2.0); Eosinophils # (auto) 0.2 10 ^3/uL (0-0.8); Monocytes # (auto) 0.6 10 ^3/uL (0-1.3); White Blood Cell 5.6 10^3/uL (4.4-10.8)
[2024-02-23 06:45] LABS: Eosinophils % (auto) 3.7 % (0.0-7.0); Hematocrit 34.5 % (36.0-46.0); Hemoglobin 11.4 g/dL (12.2-16.2); Lymphocytes # (auto) 1.5 10 ^3/uL (0.4-5.4); Lymphocytes % (auto) 27.2 % (10.0-50.0); Mean Corpuscular Hemoglobin 32.3 pg (28.0-32.0); Monocytes % (auto) 10.5 % (0.0-12.0); Neutrophils # (auto) 3.2 10 ^3/uL (1.6-8.6); Nucleated Red Blood Cells % 0.1 %; Red Blood Cells 3.52 10^6/uL (4.0-5.20); Red Cell Distribution Width 14.7 % (11.8-14.3)
[2024-02-23 07:14] LABS: Alanine Aminotransferase 33 U/L (7-40); Albumin 3.9 g/dL (3.2-4.8); Alkaline Phosphatase 98 U/L (46-116); Anion Gap 9 (5-15); Aspartate Aminotransferase 30 U/L (13-40); BUN/Creatinine Ratio 34.9 (10.0-20.0); Bilirubin, Total 0.7 mg/dL (0.2-1.0); Blood Urea Nitrogen 38 mg/dL (9-23); Calcium 9.9 mg/dL (8.5-10.1); Carbon Dioxide 25 mmol/L (20-30); Chloride 101 mmol/L (98-107); Glucose 72 mg/dL (74-106); Potassium 3.9 mmol/L (3.5-5.1); Sodium 135 mmol/L (136-145); Total Protein 5.9 g/dL (5.7-8.2)
[2024-02-23 08:00] VITALS: RESP 16
[2024-02-23 09:00] VITALS: BP 105/68; PULSE 95; RESP 20; TEMP 97.9; O2SAT 93
[2024-02-23] MEDS: ENOXAPARIN SOD 40 MG/0.4 ML SYRINGE SC SCH (09:35)
[2024-02-23 17:00] VITALS: BP 116/60; PULSE 98; RESP 17; TEMP 98.1; O2SAT 100
[2024-02-23 20:00] VITALS: RESP 18
[2024-02-23 21:00] VITALS: BP 100/51; PULSE 91; RESP 20; TEMP 97.6; O2SAT 95
[2024-02-24] VITALS (7 sets, daily range): BP systolic 95–115; BP diastolic 45–59; PULSE 80–100; RESP 16–19; TEMP 97.1–98.4; O2SAT 93–99
[2024-02-24 07:25] LABS: Urine Bacteria None Seen /hpf (None Seen)
[2024-02-24 07:42] LABS: Urine Blood TRACE /uL (Negative); Urine Clarity Clear (Clear); Urine Color Yellow (Yellow); Urine Protein, UAD TRACE (Negative); Urine Specific Gravity 1.024 (1.001-1.035); Urine Urobilinogen Normal (Negative); Urine WBC 2 /hpf (0 - 5)
[2024-02-24 07:53] LABS: Amphetamine Screen, Urine Neg (NEGATIVE)
[2024-02-24 07:54] LABS: Barbiturate Scree,Urine Neg (NEGATIVE); Benzodiazephine Screen, Urine Neg (NEGATIVE); Cannabinoid Screen, Urine Neg (NEGATIVE); Cocaine Screen, Urine Neg (NEGATIVE); Opiate Scree,Urine Pos (NEGATIVE); Phencyclidine Screen, Urine Neg (NEGATIVE)
[2024-02-25 01:00] VITALS: BP 92/49; PULSE 83; RESP 15; TEMP 98.1; O2SAT 95
[2024-02-25 05:00] VITALS: BP 94/46; PULSE 86; RESP 17; TEMP 98; O2SAT 93
[2024-02-25 08:00] VITALS: RESP 18; O2SAT 99
[2024-02-25 09:00] VITALS: BP 106/61; PULSE 96; RESP 20; TEMP 98; O2SAT 96
[2024-02-25 13:00] VITALS: BP 110/56; PULSE 84; RESP 18; TEMP 97.7; O2SAT 94
== END 2024-02-25 16:10 | disposition home or self-care (01) | DRG 300 ==
LOC: ER 09:52 → OVERFLOW 18:31 → WEST WING 22:17
PROVIDERS: ADMIT Nurse Practitioner Family; ATTEND Internal Medicine Geriatric Medicine
DX: I87.393 Chronic venous hypertension (idiopathic) with other complications of bilateral lower extremity (principal); F03.93 Unspecified dementia, unspecified severity, with mood disturbance; F03.94 Unspecified dementia, unspecified severity, with anxiety; R60.0 Localized edema; I10 Essential (primary) hypertension; E66.01 Morbid (severe) obesity due to excess calories; F20.9 Schizophrenia, unspecified; F31.9 Bipolar disorder, unspecified; I25.10 Atherosclerotic heart disease of native coronary artery without angina pectoris; F17.210 Nicotine dependence, cigarettes, uncomplicated; Z95.5 Presence of coronary angioplasty implant and graft; Z88.8 Allergy status to other drugs, medicaments and biological substances; Z82.0 Family history of epilepsy and other diseases of the nervous system; Z82.3 Family history of stroke; Z68.23 Body mass index [BMI] 23.0-23.9, adult
CPT/HCPCS: 36415; 72170; 80048; 80053; 80061; 80307; 81001; 83605; 83880; 84443; 85025; 85652; 86141; 87040; 93970; 96365; 96375; G0378; J1885; J2543

== ENCOUNTER 2024-04-23 18:14 | Inpatient (IN) | payer OTHER, MEDICARE ==
[~2024-04-23] VITALS: Ht 167.6 cm; Wt 68.1 kg
[2024-04-23] MEDS: OXYCODONE W/ ACETAMINOPHEN 5/325MG TABLET PO ONE (22:44)
[2024-04-23] MEDS ORDERED: PERCOT PO (23:23)
[2024-04-24 06:01] VITALS: PULSE 96; RESP 19; O2SAT 98
[2024-04-24 07:09] LABS: Basophils # (auto) 0.1 10 ^3/uL (0-0.2); Basophils % (auto) 0.6 % (0.0-2.0); Eosinophils # (auto) 0.1 10 ^3/uL (0-0.8); Hematocrit 49.7 % (36.0-46.0); Hemoglobin 16.8 g/dL (12.2-16.2); Lymphocytes # (auto) 1.8 10 ^3/uL (0.4-5.4); Lymphocytes % (auto) 18.8 % (10.0-50.0); Mean Corpuscular Hemoglobin 32.2 pg (28.0-32.0); Mean Corpuscular Hgb Conc. 33.9 g/dL (32.0-36.0); Mean Corpuscular Volume 95.1 fL (80.0-100.0); Monocytes # (auto) 0.7 10 ^3/uL (0-1.3); Monocytes % (auto) 6.7 % (0.0-12.0); Neutrophils # (auto) 7.1 10 ^3/uL (1.6-8.6); Neutrophils % (auto) 72.9 % (37.0-80.0); Nucleated Red Blood Cells % 0.4 %; Red Blood Cells 5.22 10^6/uL (4.0-5.20); Red Cell Distribution Width 16.8 % (11.8-14.3); White Blood Cell 9.7 10^3/uL (4.4-10.8)
[2024-04-24 07:16] LABS: Chloride 99 mmol/L (98-107); Potassium 3.4 mmol/L (3.5-5.1); Sodium 132 mmol/L (136-145)
[2024-04-24 07:17] LABS: Carbon Dioxide 34 mmol/L (20-30)
[2024-04-24 07:22] LABS: BUN/Creatinine Ratio 14.3 (10.0-20.0); Blood Urea Nitrogen 13 mg/dL (9-23); Glucose 101 mg/dL (74-106)
[2024-04-24 07:29] LABS: Anion Gap -1 (5-15)
[2024-04-24 09:04] VITALS: RESP 18; O2SAT 94
[2024-04-24] MEDS: OXYCODONE W/ ACETAMINOPHEN 5/325MG TABLET PO ONE (09:24)
[2024-04-24] MEDS ORDERED: ONDANSETRON HCL 4 MG/2 ML VIAL IV PRN (09:45)
[2024-04-24] MEDS ORDERED: NITROGLYCERIN 0.4 MG SL TAB SL PRN (09:45)
[2024-04-24] MEDS ORDERED: MORPHINE SULFATE INJ 2 MG/ml SYRG IV PRN (09:45)
[2024-04-24] MEDS: ENOXAPARIN SOD 40 MG/0.4 ML SYRINGE SC SCH (10:57)
[2024-04-24] MEDS: SODIUM CHLORIDE 0.9% 1,000 ML IV SCH (10:57)
[2024-04-24 11:32] LABS: Urine Bacteria None Seen /hpf (None Seen)
[2024-04-24 11:58] LABS: Urine Blood Negative /uL (Negative); Urine Clarity Clear (Clear); Urine Color Yellow (Yellow); Urine Hyaline Cast FEW /lpf (0 - 2); Urine Protein, UAD Negative (Negative); Urine Specific Gravity 1.017 (1.001-1.035); Urine Urobilinogen Normal (Negative); Urine WBC <1 /hpf (0 - 5); Urine pH 5.5 (5.0-9.0)
[2024-04-24] MEDS: POTASSIUM EFFERVESENT TAB 25 MEQ PO ONE (15:45)
[2024-04-24] MEDS: DOCUSATE SOD 100 MG CAP PO PRN (16:03)
[2024-04-24] MEDS: OXYCODONE W/ ACETAMINOPHEN 5/325MG TABLET PO PRN (16:04)
[2024-04-24 16:45] VITALS: BP 102/58; PULSE 90; RESP 18; TEMP 97.5; O2SAT 98
[2024-04-24 16:52] VITALS: BP 202/58; PULSE 77; RESP 18; TEMP 97.7; O2SAT 95
[2024-04-24 20:00] VITALS: PULSE 79; RESP 17; O2SAT 98
[2024-04-24 21:00] VITALS: BP 116/64; PULSE 92; RESP 18; TEMP 98.7; O2SAT 90
[2024-04-25 01:00] VITALS: BP 112/62; PULSE 95; RESP 18; TEMP 98.1; O2SAT 97
[2024-04-25 06:38] LABS: Basophils # (auto) 0 10 ^3/uL (0-0.2); Basophils % (auto) 0.1 % (0.0-2.0); Eosinophils # (auto) 0.1 10 ^3/uL (0-0.8); Eosinophils % (auto) 0.5 % (0.0-7.0); Hematocrit 44.2 % (36.0-46.0); Lymphocytes # (auto) 1.1 10 ^3/uL (0.4-5.4); Lymphocytes % (auto) 9.2 % (10.0-50.0); Mean Corpuscular Hemoglobin 32.1 pg (28.0-32.0); Mean Corpuscular Hgb Conc. 33.9 g/dL (32.0-36.0); Mean Corpuscular Volume 94.6 fL (80.0-100.0); Monocytes # (auto) 0.8 10 ^3/uL (0-1.3); Monocytes % (auto) 6.7 % (0.0-12.0); Neutrophils # (auto) 10.3 10 ^3/uL (1.6-8.6); Neutrophils % (auto) 83.5 % (37.0-80.0); Nucleated Red Blood Cells % 0.1 %; Red Blood Cells 4.67 10^6/uL (4.0-5.20); Red Cell Distribution Width 16.5 % (11.8-14.3); White Blood Cell 12.3 10^3/uL (4.4-10.8)
[2024-04-25 06:54] LABS: Albumin 3.1 g/dL (3.2-4.8); Alkaline Phosphatase 189 U/L (46-116); Anion Gap 3 (5-15); BUN/Creatinine Ratio 17.9 (10.0-20.0); Bilirubin, Total 0.4 mg/dL (0.2-1.0); Blood Urea Nitrogen 14 mg/dL (9-23); Calcium 8.9 mg/dL (8.7-10.4); Carbon Dioxide 31 mmol/L (20-30); Chloride 96 mmol/L (98-107); Glucose 105 mg/dL (74-106); Potassium 3.4 mmol/L (3.5-5.1); Sodium 130 mmol/L (136-145); Total Protein 5.6 g/dL (5.7-8.2)
[2024-04-25 06:55] LABS: Alanine Aminotransferase < 9 U/L (7-40)
[2024-04-25 07:10] LABS: Aspartate Aminotransferase 17 U/L (13-40)
[2024-04-25 08:46] VITALS: BP 123/68; PULSE 91; RESP 20; TEMP 98.2; O2SAT 92
[2024-04-25 13:14] VITALS: BP 110/54; PULSE 100; RESP 20; TEMP 97.8; O2SAT 93
[2024-04-25 16:57] VITALS: BP 123/63; PULSE 91; RESP 20; TEMP 98.5; O2SAT 90
[2024-04-25] MEDS: OXYCODONE W/ ACETAMINOPHEN 5/325MG TABLET PO PRN (18:46)
[2024-04-25 19:30] VITALS: PULSE 82; RESP 16
[2024-04-25 21:00] VITALS: BP 95/51; PULSE 96; RESP 18; TEMP 98; O2SAT 93
[2024-04-26 01:00] VITALS: BP 97/58; PULSE 91; RESP 16; TEMP 97.3; O2SAT 90
[2024-04-26 05:00] VITALS: BP 105/67; PULSE 91; RESP 18; TEMP 97.9; O2SAT 91
[2024-04-26 09:00] VITALS: BP 112/50; PULSE 90; RESP 18; TEMP 98.6; O2SAT 92
[2024-04-26] MEDS: MORPHINE SULFATE INJ 2 MG/ml SYRG IV PRN (10:22)
[2024-04-26] MEDS: SERTRALINE HCL 50 MG TAB PO ONE (12:49)
[2024-04-26 12:50] VITALS: BP 108/54; PULSE 91; RESP 20; TEMP 98.4; O2SAT 97
[2024-04-26 16:45] VITALS: BP 106/58; PULSE 91; RESP 20; TEMP 98.4; O2SAT 95
[2024-04-26 21:00] VITALS: BP 98/59; PULSE 88; RESP 16; TEMP 98.4; O2SAT 93
[2024-04-26] MEDS: QUEtiapine FUMARATE 25 MG TAB PO SCH (22:26)
[2024-04-27 01:00] VITALS: BP 98/52; PULSE 87; RESP 17; TEMP 98.4; O2SAT 92
[2024-04-27 05:00] VITALS: BP 126/58; PULSE 78; RESP 17; TEMP 98.4; O2SAT 100
[2024-04-27 08:50] VITALS: BP 98/52; PULSE 77; RESP 18; TEMP 96.9; O2SAT 97
[2024-04-27] MEDS: SERTRALINE HCL 50 MG TAB PO SCH (10:59)
[2024-04-27 12:45] VITALS: BP 100/56; PULSE 78; RESP 18; TEMP 97.5; O2SAT 95
[2024-04-27 16:45] VITALS: BP 96/55; PULSE 94; RESP 20; TEMP 97.5; O2SAT 95
[2024-04-27 21:00] VITALS: BP 110/65; PULSE 58; RESP 18; TEMP 98; O2SAT 92
[2024-04-28] VITALS (7 sets, daily range): BP systolic 105–138; BP diastolic 54–68; PULSE 88–102; RESP 6–20; TEMP 97.6–98.7; O2SAT 92–98
[2024-04-29] VITALS (9 sets, daily range): BP systolic 111–160; BP diastolic 60–81; PULSE 53–92; RESP 16–20; TEMP 97.8–99.4; O2SAT 91–98
[2024-04-29] MEDS: LORazepam 2MG/ML-1ML VIAL IV ONE (11:10)
[2024-04-29] MEDS: LORazepam 2MG/ML-1ML VIAL ONE ×2 (11:22→11:23)
[2024-04-29 16:14] LABS: Basophils # (auto) 0 10 ^3/uL (0-0.2); Basophils % (auto) 0.5 % (0.0-2.0); Eosinophils # (auto) 0.1 10 ^3/uL (0-0.8); Eosinophils % (auto) 1.4 % (0.0-7.0); Hematocrit 38.1 % (36.0-46.0); Hemoglobin 12.6 g/dL (12.2-16.2); Lymphocytes # (auto) 1.3 10 ^3/uL (0.4-5.4); Lymphocytes % (auto) 17.3 % (10.0-50.0); Mean Corpuscular Hemoglobin 31.3 pg (28.0-32.0); Mean Corpuscular Volume 94.7 fL (80.0-100.0); Monocytes # (auto) 0.8 10 ^3/uL (0-1.3); Monocytes % (auto) 10.1 % (0.0-12.0); Neutrophils # (auto) 5.3 10 ^3/uL (1.6-8.6); Neutrophils % (auto) 70.7 % (37.0-80.0); Nucleated Red Blood Cells % 0.2 %; Red Blood Cells 4.02 10^6/uL (4.0-5.20); Red Cell Distribution Width 16.7 % (11.8-14.3); White Blood Cell 7.5 10^3/uL (4.4-10.8)
[2024-04-29 16:36] LABS: Potassium 3.8 mmol/L (3.5-5.1)
[2024-04-29 16:37] LABS: Anion Gap 4 (5-15); Calcium 8.7 mg/dL (8.5-10.1); Carbon Dioxide 23 mmol/L (20-30)
[2024-04-29 16:42] LABS: Blood Urea Nitrogen 6 mg/dL (9-23); Glucose 79 mg/dL (74-106)
[2024-04-29 16:55] LABS: Chloride 108 mmol/L (98-107); Sodium 135 mmol/L (136-145)
[2024-04-30 01:31] VITALS: BP 119/68; PULSE 94; RESP 16; TEMP 98.3; O2SAT 96
[2024-04-30 05:58] VITALS: BP 132/64; PULSE 83; RESP 16; TEMP 97.8; O2SAT 93
[2024-04-30 07:30] VITALS: RESP 16
[2024-04-30 09:04] VITALS: BP 128/70; PULSE 88; RESP 20; TEMP 98.7; O2SAT 92
[2024-04-30 17:00] VITALS: BP 129/55; PULSE 97; RESP 18; TEMP 98.4; O2SAT 92
[2024-04-30 21:00] VITALS: BP 113/61; PULSE 80; RESP 17; TEMP 98.4; O2SAT 93
[2024-05-01 01:00] VITALS: BP 103/59; PULSE 77; RESP 15; TEMP 97.6; O2SAT 93
[2024-05-01 05:00] VITALS: BP 127/66; PULSE 81; RESP 15; TEMP 98.3; O2SAT 92
[2024-05-01 08:00] VITALS: BP 120/59; PULSE 79; RESP 18; TEMP 98.3; O2SAT 94
[2024-05-01 12:00] VITALS: BP 101/58; PULSE 84; RESP 16; TEMP 98.6; O2SAT 96
[2024-05-01 17:00] VITALS: BP 109/68; PULSE 79; RESP 18; TEMP 98.5; O2SAT 97
[2024-05-01 20:49] VITALS: BP 123/69; PULSE 92; RESP 18; TEMP 98.1; O2SAT 96
[2024-05-02 00:47] VITALS: BP 119/67; PULSE 94; RESP 16; TEMP 98; O2SAT 94
[2024-05-02 05:00] VITALS: BP_SYST 123; BP_SYST 136; BP_DIAS 69; BP_DIAS 80; PULSE 101; PULSE 69; RESP 16; TEMP 98; TEMP 98.2; O2SAT 92; O2SAT 96
[2024-05-02 08:00] VITALS: BP 123/62; PULSE 95; RESP 18; TEMP 98.9; O2SAT 96
[2024-05-02 12:00] VITALS: BP 114/58; PULSE 87; RESP 16; TEMP 98.3; O2SAT 91
[2024-05-02 16:00] VITALS: BP 106/51; PULSE 80; RESP 16; TEMP 98.3; O2SAT 93
[2024-05-02 21:00] VITALS: BP 129/55; PULSE 88; RESP 17; TEMP 98.7; O2SAT 93
[2024-05-03] VITALS (8 sets, daily range): BP systolic 93–147; BP diastolic 56–68; PULSE 88–96; RESP 14–20; TEMP 97.9–99; O2SAT 90–98
[2024-05-03] MEDS: Ensure HIGH Protein Chocolate 8oz Bottle PO SCH (18:00)
[2024-05-04] VITALS (7 sets, daily range): BP systolic 106–143; BP diastolic 56–68; PULSE 76–88; RESP 16–20; TEMP 97.6–98.5; O2SAT 90–92
[2024-05-05] VITALS (7 sets, daily range): BP systolic 122–148; BP diastolic 70–77; PULSE 77–93; RESP 17–19; TEMP 97.9–98.5; O2SAT 92–100
[2024-05-05 12:33] LABS: Lymphocytes % (auto) 8.6 % (10.0-50.0)
[2024-05-05 12:36] LABS: Basophils # (auto) 0.1 10 ^3/uL (0-0.2); Basophils % (auto) 0.7 % (0.0-2.0); Eosinophils # (auto) 0 10 ^3/uL (0-0.8); Eosinophils % (auto) 0.3 % (0.0-7.0); Hematocrit 39.5 % (36.0-46.0); Hemoglobin 13.3 g/dL (12.2-16.2); Mean Corpuscular Hemoglobin 31.7 pg (28.0-32.0); Mean Corpuscular Hgb Conc. 33.7 g/dL (32.0-36.0); Mean Corpuscular Volume 94.1 fL (80.0-100.0); Monocytes # (auto) 0.8 10 ^3/uL (0-1.3); Monocytes % (auto) 7.1 % (0.0-12.0); Neutrophils # (auto) 9.4 10 ^3/uL (1.6-8.6); Neutrophils % (auto) 83.3 % (37.0-80.0); Red Cell Distribution Width 16.9 % (11.8-14.3); White Blood Cell 11.3 10^3/uL (4.4-10.8)
[2024-05-05 12:47] LABS: Albumin 3.1 g/dL (3.2-4.8); Alkaline Phosphatase 160 U/L (46-116); Anion Gap 3 (5-15); Aspartate Aminotransferase 13 U/L (13-40); BUN/Creatinine Ratio 19.1 (10.0-20.0); Blood Urea Nitrogen 9 mg/dL (9-23); Carbon Dioxide 26 mmol/L (20-30); Chloride 106 mmol/L (98-107); Glucose 94 mg/dL (74-106); Potassium 3.7 mmol/L (3.5-5.1); Sodium 135 mmol/L (136-145)
[2024-05-05 12:48] LABS: Bilirubin, Total 0.2 mg/dL (0.2-1.0); Total Protein 5.3 g/dL (5.7-8.2)
[2024-05-05 12:50] LABS: Alanine Aminotransferase < 9 U/L (7-40)
== END 2024-05-05 18:26 | DRG 536 ==
LOC: EDBD 18:14 → ER 18:14 → OVERFLOW 04-24 09:37 → WEST WING 04-24 18:00
PROVIDERS: ADMIT Nurse Practitioner Family; ATTEND Family Medicine
DX: S32.591A Other specified fracture of right pubis, initial encounter for closed fracture (principal); E87.1 Hypo-osmolality and hyponatremia; R65.10 Systemic inflammatory response syndrome (SIRS) of non-infectious origin without acute organ dysfunction; D69.6 Thrombocytopenia, unspecified; E87.6 Hypokalemia; F32.A Depression, unspecified; I10 Essential (primary) hypertension; I25.10 Atherosclerotic heart disease of native coronary artery without angina pectoris; I95.2 Hypotension due to drugs; W01.0XXA Fall on same level from slipping, tripping and stumbling without subsequent striking against object, initial encounter; T43.595A Adverse effect of other antipsychotics and neuroleptics, initial encounter; F17.210 Nicotine dependence, cigarettes, uncomplicated; Z96.642 Presence of left artificial hip joint; F41.9 Anxiety disorder, unspecified; F03.90 Unspecified dementia, unspecified severity, without behavioral disturbance, psychotic disturbance, mood disturbance, and anxiety; Z74.01 Bed confinement status; Z88.8 Allergy status to other drugs, medicaments and biological substances; Y93.89 Activity, other specified; Y92.89 Other specified places as the place of occurrence of the external cause; Y99.8 Other external cause status; Z82.0 Family history of epilepsy and other diseases of the nervous system; Z82.3 Family history of stroke; Z95.5 Presence of coronary angioplasty implant and graft
CPT/HCPCS: 36415; 72100; 73502; 73700; 80048; 80053; 81001; 85025; 87086; 96372; 97110; 97116; 97163; 97530; G0378

== ENCOUNTER 2025-05-03 14:02 | Inpatient (IN) | payer OTHER, MEDICARE ==
[~2025-05-03] VITALS: Ht 167.6 cm; Wt 62.3 kg
[~2025-05-03 14:02] MED LIST changes: +PERCOT PO
--- NOTE | 2025-05-03 16:05 | ED.PDOC ---
Musculoskeletal HPI Comments 74y F who presents to the ED for chief complaint of fall injury. Per spouse, pt has fall 3 days prior onto R hip. Pt had home health nurse evaluate the 2 days prior and ordered for pt to have x-ray of hip. Pt has radiology service come and perform x-ray and today received call from radiology company that pt had possible L femur fracture and pt brought pt to the ED for evaluation. Pt in the ED, presents in wheelchair and noted pain of L leg with any noted ambulation. Pt rates the pain 10/10, constant, with no noted exacerbating or relieving factors. Pt is noted to be on home hospice. Chief Complaint: Lower Extremity Time Seen by MD: 14:08 Primary Care Provider: SARAH Das Notes: Medications, Allergies Allergies: Coded Allergies: Ticagrelor (Verified Allergy, Unknown, 02/27/18) Home Meds Active Scripts Oxycodone W/ Acetaminophen (Percocet 5/325MG) 1 Tab Tb, 1 TAB PO Q8HP PRN, #20 TAB Prov:DEL KNOX PAC 04/23/24 Cephalexin (KEFLEX CAPSULE) 250 Mg Cp, 500 MG PO BID for 5 Days, #10 CAP Prov:SHAN WANG RESIDENT 01/22/24 Lorazepam (Ativan) 0.5 Mg Tab, 0.5 MG PO BID for 15 Days, #30 TAB Prov:CARMEN LANDERS MD 12/10/23 Baclofen (Baclofen) 20 Mg Tab, 20 MG PO TID PRN for 7 Days, #21 TAB Prov:CARMEN LANDERS MD 12/09/23 Reported Medications Alprazolam (Alprazolam) 0.5 Mg Tab, 0.5 MG PO BIDP PRN for ANXIETY, TAB 01/09/18 Ibuprofen (Ibuprofen) 800 Mg Tab, 800 MG PO TIDPRN, MG 01/09/18 Information Source: Patient, Spouse Mode of Arrival: Wheelchair Brought in by: spouse Past Medical History PAST MEDICAL HISTORY: Anxiety, Dementia, Depression, HTN Surgical History: PTCA BISTRO SERVER History: No Pertinent BISTRO SERVER History Family History Family History: Unknown Social History Smoker: Cigarettes Alcohol: Occasionally Drugs: Denies Drug Use Lives In: Home Musculoskeletal: reports: joint pain (R hip) Physical Exam General Appearance: No Apparent Distress, Normal HEENT: Normal ENT Inspection, Pharynx Normal, TMs Normal Neck: Full Range of Motion, Non-Tender, Normal, Normal Inspection Respiratory: Chest Non-Tender, Lungs Clear, No Accessory Muscle Use, No Respi ratory Distress, Normal Breath Sounds Cardiovascular: No Edema, No JVD, No Murmur, No Gallop, Normal Peripheral Pulses, Regular Rate/Rhythm Breast Exam: Deferred Gastrointestinal: No Organomegaly, Non Tender, No Pulsatile Mass, Normal Bowel Sounds, Soft Genitalia: Deferred Pelvic: Deferred Rectal: Deferred Extremities: Decreased range of motion (R hip), Tender (R lower extremity tenderness to palptation) Musculoskeletal : Apperance: Normal Neurologic: Alert, oncology rn II-XII nml as Tested, No Motor Deficits, Normal Affect, Normal Mood, No Sensory Deficits Cerebellar Function: Normal Reflexes: Normal Skin: Dry, Normal Color, Warm Lymphatic: No Adenopathy Was a procedure done? Was a procedure done?: No Differential Diagnosis EXT Differential Diagnosis: Fracture, Sprain, Dislocation, DJD, Contusion, Strain, Rheumatoid, Arthritis X-Ray, Labs, Meds, VS Vital Signs Date Time Temp Pulse Resp B/P (MAP) Pulse Ox O2 Delivery O2 Flow Rate FiO2 05/03/25 17:18 93 18 148/79 (102) 98 05/03/25 14:10 98.7 105 18 113/69 (84) 93 98.7 Lab Test 05/03/25 16:19 Range/Units White Blood Count 11.4 H 4.4-10.8 10^3/uL Red Blood Count 5.33 H 4.0-5.20 10^6/uL Hemoglobin 16.9 H 12.2-16.2 g/dL Hematocrit 49.1 H 36.0-46.0 % Mean Corpuscular Volume 92.0 80.0-100.0 fL Mean Corpuscular Hemoglobin 31.7 28.0-32.0 pg Mean Corpuscular Hemoglobin Concent 34.5 32.0-36.0 g/dL Red Cell Distribution Width 15.3 H 11.8-14.3 % Platelet Count 302 140-450 10^3/uL Mean Platelet Volume 7.1 6.9-10.8 fL Neutrophils (%) (Auto) 83.8 H 37.0-80.0 % Lymphocytes (%) (Auto) 10.1 10.0-50.0 % Monocytes (%) (Auto) 4.7 0.0-12.0 % Eosinophils (%) (Auto) 0.7 0.0-7.0 % Basophils (%) (Auto) 0.7 0.0-2.0 % Neutrophils # (Auto) 9.5 H 1.6-8.6 10 ^3/uL Lymphocytes # (Auto) 1.1 0.4-5.4 10 ^3/uL Monocytes # (Auto) 0.5 0-1.3 10 ^3/uL Eosinophils # (Auto) 0.1 0-0.8 10 ^3/uL Basophils # (Auto) 0.1 0-0.2 10 ^3/uL Nucleated Red Blood Cells 0.0 % Sodium Level 141 136-145 mmol/L Potassium Level 3.8 3.5-5.1 mmol/L Chloride Level 100 98-107 mmol/L Carbon Dioxide Level 31 20-31 mmol/L Anion Gap 10 5-15 Blood Urea Nitrogen 16 9-23 mg/dL Creatinine 1.16 H 0.550-1.02 mg/dL Glomerular Filtration Rate Calc 49 >90 mL/min BUN/Creatinine Ratio 13.8 10.0-20.0 Serum Glucose 98 74-106 mg/dL Calcium Level 9.7 8.7-10.4 mg/dL Time of 1ST Reevaluation: 17:32 Reevaluation 1ST: Improved Patient Education/Counseling: Diagnosis, Treatment Family Education/Counseling: Diagnosis, Treatment Departure 1 Departure Time of Disposition: 17:31 (Here with a right femur fracture. We will discharge patient home with outpatient follow up) Impression: Primary Impression: Right femoral fracture Qualified Codes: S72.21XA - Displaced subtrochanteric fracture of right femur, initial encounter for closed fracture Disposition: ADMITTED INPATIENT Admit to: Med Surg Condition: Serious Critical Care Note Critical Care Time?: Yes Critical care comment: Concern for femur fracture intractable pain Authorized and Performed by: Vince Fish MD Total critical care time: Approximately 37 minutes Due to a high probability of clinically significant, life threatening deterioration, the patient required my highest level of preparedness to int ervene emergently and I personally spent this critical care time directly and personally managing the patient. This critical care time included obtaining a history; examining the patient; pulse oximetry; ordering and review of studies; arranging urgent treatment with development of a management plan; evaluation of patient's response to treatment; frequent reassessment; and, discussions with other providers. This critical care time was performed to assess and manage the high probability of imminent, life-threatening deterioration that could result in multi-organ failure. It was exclusive of separately billable procedures and treating other patients and teaching time. Please see my other sections and the rest of the note for further information on patient assessment and treatment. Stability Stability form required: No Heart Score Heart Score: Heart Score Response (Comments) Value History N/A 0 EKG N/A 0 Age N/A 0 Risk Factors N/A 0 Troponin N/A 0 Total 0 I personally scribed for VINCE FISH MD ([email or web address]) on 05/03/25 at 16:05. E lectronically submitted by Lou Dawkins ([email or web address]). I personally scribed for VINCE FISH MD ([email or web address]) on 05/03/25 at 16:12. Electronically submitted by Lou Dawkins ([email or web address]). VINCE FISH MD May 03, 2025 16:05
[2025-05-03 16:27] LABS: Hematocrit 49.1 % (36.0-46.0); Hemoglobin 16.9 g/dL (12.2-16.2); Mean Corpuscular Hemoglobin 31.7 pg (28.0-32.0); Mean Corpuscular Volume 92.0 fL (80.0-100.0); Nucleated Red Blood Cells % 0.0 %
--- NOTE | 2025-05-03 16:35 | DVH ---
CHEST RADIOGRAPH Indication: fall, trauma, pain Technique: Single frontal view of the chest was obtained COMPARISON: XY CHEST PORTABLE on DOS: 01/19/24 FINDINGS: Lines and Tubes: None Lungs: Clear Pleura: No effusion. No pneumothorax. Cardiomediastinal contours: Unremarkable Bones: Unremarkable IMPRESSION: No acute disease.
[2025-05-03 16:41] LABS: Chloride 100 mmol/L (98-107); Potassium 3.8 mmol/L (3.5-5.1); Sodium 141 mmol/L (136-145)
[2025-05-03 16:42] LABS: Anion Gap 10 (5-15)
[2025-05-03 16:43] LABS: Calcium 9.7 mg/dL (8.7-10.4)
[2025-05-03 16:44] LABS: Carbon Dioxide 31 mmol/L (20-31)
[2025-05-03 16:47] LABS: BUN/Creatinine Ratio 13.8 (10.0-20.0); Blood Urea Nitrogen 16 mg/dL (9-23); Glucose 98 mg/dL (74-106)
--- NOTE | 2025-05-03 17:15 | DVH ---
CLINICAL INDICATION: fall TECHNIQUE: 4 radiographic views of the right hip were obtained. Comparison: XY R HIP COMPLETE XRAY on DOS: 05/02/24, XY L HIP COMPLETE XRAY on DOS: 05/02/24 FINDINGS/IMPRESSION: Displaced subcapital fracture of the right proximal femur is noted. The visualized joint space is well maintained. The alignment is anatomical. There is no radiopaque foreign body.
--- NOTE | 2025-05-03 17:17 | DVH ---
CLINICAL INDICATION: fall TECHNIQUE: 2 radiographic views of the right tibia and fibula were obtained. Comparison: None FINDINGS/IMPRESSION: There is no evidence of acute fracture or dislocation. Postop changes from an open reduction internal resection of the patellar fracture is noted. The visualized joint space is well maintained. The alignment is anatomical. There is no radiopaque foreign body.
--- NOTE | 2025-05-03 17:17 | DVH ---
CLINICAL INDICATION: fall TECHNIQUE: 4 radiographic views of the right femur were obtained. Comparison: None FINDINGS/IMPRESSION: Subcapital fracture of the proximal right femur is noted with displacement. The mid and distal femur are intact. The visualized joint space is well maintained. The alignment is anatomical. There is no radiopaque foreign body.
[2025-05-03] MEDS: SODIUM CHLORIDE 0.9% 1,000 ML IV ONE (17:42)
[2025-05-03] MEDS: ONDANSETRON HCL 4 MG/2 ML VIAL IV ONE (17:42)
[2025-05-03] MEDS: MORPHINE SULFATE 4 MG/ML SYR/VIAL IV ONE (17:43)
[2025-05-03 18:25] LABS: Urine Protein, UAD Negative (Negative)
[2025-05-03 19:13] VITALS: PULSE 87; RESP 20; O2SAT 94
[2025-05-03] MEDS ORDERED: ONDANSETRON HCL 4 MG/2 ML VIAL IV PRN (19:30)
[2025-05-03] MEDS ORDERED: ACETAMINOPHEN 325 MG TAB PO PRN (19:30)
[2025-05-03 19:45] VITALS: PULSE 99; RESP 15; O2SAT 98
[2025-05-03 20:02] LABS: INR 0.97 (0.9-1.15); Partial Thromboplastin Time 25.0 SEC (24.5-34.5); Prothrombin Time 10.3 sec (9.3-11.8)
[2025-05-03 21:17] VITALS: BP 148/73; PULSE 92; RESP 16; TEMP 98.7; O2SAT 97
--- NOTE | 2025-05-03 21:24 | DVHHP2 ---
History of Present Illness Reason for Visit: Right hip pain History of Present Illness 74-year-old female presents for evaluation of right hip pain. Patient presents after having a fall three days ago landing on her right side. Patient had an x- ray done by home health agency and was advised to present for further evaluation due to possible fracture. Patient unable to bear weight. Past Medical History Depression, hypertension, dementia Past Surgical History PTCA Family History Noncontributory Smoke: <1 pack per day ALCOHOL: occassional Drugs: None Review of Systems Review of Systems Review of systems are currently negative otherwise addressed in HPI. Allergies: Coded Allergies: Ticagrelor (Verified Allergy, Unknown, 02/27/18) Medications Current Medications Medications Dose Ordered Sig/[place] Route Start Time Stop Time Status Last Admin Dose Admin Atorvastatin Calcium 40 mg HS PO 05/03/25 22:00 Furosemide 20 mg DAILY PO 05/04/25 10:00 Sertraline HCl 100 mg DAILY PO 05/04/25 10:00 Acetaminophen/ Hydrocodone Bitart 1 tab Q4HP PRN PO 05/03/25 19:30 Ondansetron HCl 4 mg Q4HP PRN IV 05/03/25 19:30 Acetaminophen 650 mg Q6HP PRN PO 05/03/25 19:30 Morphine Sulfate 2 mg Q4HPRN PRN IV 05/03/25 19:30 Exam Vital Signs Vital Signs Date Time Temp Pulse Resp B/P (MAP) Pulse Ox O2 Delivery O2 Flow Rate FiO2 05/03/25 19:45 99 15 98 Room Air* 0 21 05/03/25 19:43 124/71 (88) 05/03/25 14:10 98.7 98.7 Exam Gen: 74-year-old female in mild distress Skin: Warm, dry, normal color and texture, no rash. HEENT: Normocephalic atraumatic, mucous membranes moist and pink. Neck: Cervical and supraclavicular nodes normal without enlargement, trachea is midline, thyroid gland is normal without masses. Pulmonary: Clear to auscultation and percussion bilaterally. Cardiac: Regular rate and rhythm. No murmur Abdomen: Soft, nontender, nondistended, bowel sounds present all 4 quadrants, no guarding, no rigidity, no organomegaly. Extremities: No cyanosis, clubbing, right lower extremity with positive distal pulses with limited range of motion. Neuro: Cranial nerves II through XII grossly intact, normal affect and speech, no focal motor deficits. Labs/Xrays ORDERING PHYSICIAN: VINCE AUGUSTINE MD PROCEDURE(s): CXRP - CHEST PORTABLE REASON: fall ORDER NUMBER(s): [id number], ACCESSION NUMBER(s): [id number] CHEST RADIOGRAPH Indication: fall, trauma, pain Technique: Single frontal view of the chest was obtained COMPARISON: XY CHEST PORTABLE on DOS: 01/19/24 FINDINGS: Lines and Tubes: None Lungs: Clear Pleura: No effusion. No pneumothorax. Cardiomediastinal contours: Unremarkable Bones: Unremarkable IMPRESSION: No acute disease. RING PHYSICIAN: VINCE AUGUSTINE MD PROCEDURE(s): RFEM - R FEMUR XRAY REASON: fall ORDER NUMBER(s): [id number], ACCESSION NUMBER(s): [id number] CLINICAL INDICATION: fall TECHNIQUE: 4 radiographic views of the right femur were obtained. Comparison: None FINDINGS/IMPRESSION: Subcapital fracture of the proximal right femur is noted with displacement. The mid and distal femur are intact. The visualized joint space is well maintained. The alignment is anatomical. There is no radiopaque foreign body. RING PHYSICIAN: VINCE AUGUSTINE MD PROCEDURE(s): RHIP - R HIP COMPLETE XRAY REASON: fall ORDER NUMBER(s): [id number], ACCESSION NUMBER(s): [id number] CLINICAL INDICATION: fall TECHNIQUE: 4 radiographic views of the right hip were obtained. Comparison: XY R HIP COMPLETE XRAY on DOS: 05/02/24, XY L HIP COMPLETE XRAY on DOS: 05/02/24 FINDINGS/IMPRESSION: Displaced subcapital fracture of the right proximal femur is noted. The visualized joint space is well maintained. The alignment is anatomical. There is no radiopaque foreign body. Labs Test 05/03/25 19:34 05/03/25 18:04 05/03/25 16:19 Range/Units Prothrombin Time 10.3 9.3-11.8 sec Prothrombin Time INR 0.97 0.9-1.15 Activated Partial Thromboplast Time 25.0 24.5-34.5 SEC Urine Color Yellow Yellow Urine Clarity Clear Clear Urine pH 7.0 5.0-9.0 Urine Specific [place] 1.013 1.001-1.035 Urine Protein Negative Negative Urine Ketones Negative Negative Urine Blood Negative Negative /uL Urine Nitrite Negative Negative Urine Bilirubin Negative Negative Urine Urobilinogen Normal Negative mg/dL Urine Leukocyte Esterase Negative Negative /uL Urine RBC 3 0 - 4 /hpf Urine Microscopic WBC 2 0-5 /HPF Urine Squamous Epithelial Cells Few <5 /hpf Urine Bacteria None seen None Seen /hpf Urine Glucose Normal Normal mg/dL White Blood Count 11.4 H 4.4-10.8 10^3/uL Red Blood Count 5.33 H 4.0-5.20 10^6/uL Hemoglobin 16.9 H 12.2-16.2 g/dL Hematocrit 49.1 H 36.0-46.0 % Mean Corpuscular Volume 92.0 80.0-100.0 fL Mean Corpuscular Hemoglobin 31.7 28.0-32.0 pg Mean Corpuscular Hemoglobin Concent 34.5 32.0-36.0 g/dL Red Cell Distribution Width 15.3 H 11.8-14.3 % Platelet Count 302 140-450 10^3/uL Mean Platelet Volume 7.1 6.9-10.8 fL Neutrophils (%) (Auto) 83.8 H 37.0-80.0 % Lymphocytes (%) (Auto) 10.1 10.0-50.0 % Monocytes (%) (Auto) 4.7 0.0-12.0 % Eosinophils (%) (Auto) 0.7 0.0-7.0 % Basophils (%) (Auto) 0.7 0.0-2.0 % Neutrophils # (Auto) 9.5 H 1.6-8.6 10 ^3/uL Lymphocytes # (Auto) 1.1 0.4-5.4 10 ^3/uL Monocytes # (Auto) 0.5 0-1.3 10 ^3/uL Eosinophils # (Auto) 0.1 0-0.8 10 ^3/uL Basophils # (Auto) 0.1 0-0.2 10 ^3/uL Nucleated Red Blood Cells 0.0 % Sodium Level 141 136-145 mmol/L Potassium Level 3.8 3.5-5.1 mmol/L Chloride Level 100 98-107 mmol/L Carbon Dioxide Level 31 20-31 mmol/L Anion Gap 10 5-15 Blood Urea Nitrogen 16 9-23 mg/dL Creatinine 1.16 H 0.550-1.02 mg/dL Glomerular Filtration Rate Calc 49 >90 mL/min BUN/Creatinine Ratio 13.8 10.0-20.0 Serum Glucose 98 74-106 mg/dL Calcium Level 9.7 8.7-10.4 mg/dL Assessment/Plan Assessment/Plan Assessment Right femoral fracture Hypertension Plan Admit the patient to Med surge to the hospitalist Orthopedic consultation Pain management Continue treatment per orders. Plan discussed with: Patient My Orders Orders - ADILENE BYRD Procedure Category Date Status Time * Orthopedic Consult CONS 05/03/25 Transmitted 19:17 Atorvastatin (Lipitor) PHA 05/03/25 In Process 22:00 Furosemide Tablet PHA 05/04/25 In Process (Lasix Tablet) 10:00 Sertraline Hcl PHA 05/04/25 In Process (Zoloft) 10:00 Basic Metabolic Panel LAB 05/04/25 Verified 04:00 Admit ADMIT 05/03/25 Transmitted 19:17 Hydrocodone-Acet PHA 05/03/25 In Process 5/325mg Tab ([place] 19:30 Ondansetron Hcl PHA 05/03/25 In Process (Zofran) 19:30 Condition: Stable FRANCESCO 05/03/25 In Process 19:17 Acetaminophen Tablet PHA 05/03/25 In Process (Tylenol Tablet) 19:30 Bedrest With Bathroom FRANCESCO 05/03/25 In Process Privileg 19:17 Morphine Sulfate PHA 05/03/25 In Process Injection 19:30 Date of Service: May 03, 2025 Billing Provider: ADILENE BYRD Common Visit Codes: [id number] INP/OBS CARE (MOD) ADILENE BYRD May 03, 2025 21:24
[2025-05-03] MEDS: ATORVASTATIN 20 MG TAB PO SCH (21:49)
[2025-05-03] MEDS: MORPHINE SULFATE INJ 2 MG/ml SYRG IV PRN (21:50)
[2025-05-03 22:13] VITALS: BP 148/73; PULSE 87; RESP 16; RESP 18; TEMP 98.7; O2SAT 97
[2025-05-04] VITALS (16 sets, daily range): BP systolic 94–149; BP diastolic 53–76; PULSE 76–101; RESP 12–19; TEMP 97.8–98.7; O2SAT 90–100
[2025-05-04 06:49] LABS: Chloride 105 mmol/L (98-107); Potassium 3.8 mmol/L (3.5-5.1); Sodium 141 mmol/L (136-145)
[2025-05-04 06:50] LABS: Anion Gap 7 (5-15); Calcium 9.7 mg/dL (8.7-10.4); Carbon Dioxide 29 mmol/L (20-31)
[2025-05-04 06:55] LABS: BUN/Creatinine Ratio 16.1 (10.0-20.0); Blood Urea Nitrogen 14 mg/dL (9-23); Glucose 98 mg/dL (74-106)
[2025-05-04] MEDS ORDERED: CLON0.5T3 PO (09:27)
[2025-05-04] MEDS ORDERED: QUET100T47 PO (09:27)
[2025-05-04] MEDS ORDERED: CLOP75TA70 PO (09:27)
[2025-05-04] MEDS ORDERED: FURO40TA4 PO (09:27)
[2025-05-04] MEDS ORDERED: BUSP15TA60 PO (09:27)
[2025-05-04] MEDS ORDERED: ATOR40TA52 PO (09:27)
[2025-05-04] MEDS ORDERED: MULT-732 OR (09:27)
[2025-05-04] MEDS ORDERED: FOLI-119 PO (09:27)
[2025-05-04] MEDS ORDERED: MELO7.5T7 PO (09:27)
[2025-05-04] MEDS ORDERED: SERT-206 PO (09:27)
[2025-05-04] MEDS ORDERED: ZOLP12.569 PO (09:27)
[2025-05-04] MEDS ORDERED: IBU600T PO (09:27)
[2025-05-04] MEDS ORDERED: LORA-1123 PO (09:27)
[2025-05-04] MEDS ORDERED: HYDR-4798 PO (09:27)
[2025-05-04] MEDS: SERTRALINE HCL 50 MG TAB PO SCH (10:00)
[2025-05-04] MEDS: FUROSEMIDE 20 MG TAB PO SCH (10:00)
[2025-05-04] MEDS ORDERED: PHENYLEPHRINE HCL 10 MG/ML VL IV ONE (11:20)
[2025-05-04] MEDS ORDERED: MORPHINE SULF PF 5 MG/10 ML VIAL ONE ×2 (11:40→11:58)
[2025-05-04] MEDS ORDERED: fentaNYL CITRATE 100 MCG/2 ML VL ONE (11:40)
[2025-05-04] MEDS ORDERED: MIDAZOLAM HCL 2MG/2ML 2ml VIAL (1mg/ml) ONE ×4 (11:41→12:33)
[2025-05-04] MEDS ORDERED: ceFAZolin 1GM/50ML 100 ML IV ONE (11:43)
[2025-05-04] MEDS ORDERED: TETRACAINE 1% INJ 2 ML VIAL IJ ONE (11:44)
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
[2025-05-04] MEDS ORDERED: TRANEXAMIC ACID 20 ML ONE (11:55)
[2025-05-04] MEDS ORDERED: BUPIVACAINE 0.25% INJ 50ML VIAL ONE (11:55)
[2025-05-04] MEDS ORDERED: KETOROLAC TROMETH 30 MG/ML 1ML VIAL ONE (11:58)
[2025-05-04] MEDS ORDERED: PROPOFOL 10 MG/ML 20 ML IV ONE (12:06)
--- NOTE | 2025-05-04 12:10 | DVHPN2 ---
Progress Note Date Seen: May 04, 2025 Medical Necessity Reason Pt with a Central, PICC or Fol: Yes The following are medically ne: Guillory Catheter Reason for guillory catheter: Strict I&O Subjective Patient reports: No new complaints Review of Systems: HEENT:Normal, CVS:Normal, RESPIRATORY:Normal, GI:Normal, :Normal, MSK:Normal, NEURO:Normal Objective vital signs Vital Sign Date Time Temp Pulse Resp B/P (MAP) Pulse Ox O2 Delivery O2 Flow Rate FiO2 05/04/25 10:23 80 17 149/75 05/04/25 08:53 98.4 98 98.4 05/04/25 08:00 Nasal Cannula* 2 28 Total Intake and Output 05/03/25 05/03/25 05/04/25 15:00 23:00 07:00 Intake Total 1000 ml 450 ml Output Total 450 ml Balance 1000 ml 0 ml medications Current Medications Medications Dose Ordered Sig/Lee Ann Route Start Time Stop Time Status Last Admin Dose Admin Atorvastatin Calcium 40 mg HS PO 05/03/25 22:00 05/03/25 21:49 40 MG Furosemide 20 mg DAILY PO 05/04/25 10:00 Sertraline HCl 100 mg DAILY PO 05/04/25 10:00 Acetaminophen/ Hydrocodone Bitart 1 tab Q4HP PRN PO 05/03/25 19:30 Ondansetron HCl 4 mg Q4HP PRN IV 05/03/25 19:30 Acetaminophen 650 mg Q6HP PRN PO 05/03/25 19:30 Morphine Sulfate 2 mg Q4HPRN PRN IV 05/03/25 19:30 05/04/25 10:23 2 MG Cefazolin Sodium 50 ml @ 100 mls/hr Q8HR IV 05/04/25 14:00 05/05/25 06:29 UNV Enoxaparin Sodium 40 mg DAILY SC 05/05/25 10:00 UNV Examination: GENERAL:Normal, HEENT:Normal, NECK:Normal, LUNGS:Normal, CVS:Normal, ABDOMEN:Normal, MSK:Normal, SKIN:Normal, NEURO:Normal, :Normal laboratory and microbiology Laboratory Tests 05/04/25 05:48 05/03/25 16:19 Test 05/04/25 05:48 Range/Units Serum Glucose 98 74-106 mg/dL Problem List/Assessment/Plan Problem List/Assessment/Plan #1 right femur fracture: surg today #2 cad s/p stents #3 hyperlipidemia #4 chronic diastolic heart failure #5 depression/anxiety advance care planning- full code- time spent 18 mins Plan discussed with: Other (rn) My Orders My Orders Orders - ADILENE PAUL MD Procedure Category Date Status Time Complete Blood Count LAB 05/05/25 Verified 06:00 Comprehensive LAB 05/05/25 Verified Metabolic Panel 06:00 Chest Portable XY 05/05/25 Verified 06:00 NS PHA 05/04/25 Verified 12:15 Date of Service: May 04, 2025 Billing Provider: ADILENE PAUL MD Common Visit Codes: [id number] INP/OBS CARE(HIGH) Secondary Visit Codes: [id number] CARE PLAN 30 MINUTES ADILENE PAUL MD May 04, 2025 12:10
[2025-05-04] MEDS ORDERED: CEFEPIME 1GM/ 50ML 50 ML IV ONE (12:11)
[2025-05-04] MEDS: SODIUM CHLORIDE 0.9% 1,000 ML IV SCH (12:15)
[2025-05-04] MEDS ORDERED: ONDANSETRON HCL 4 MG/2 ML VIAL IV PRN (13:00)
[2025-05-04] MEDS ORDERED: NALOXONE HCL 0.4 MG/ML VIAL IV PRN (13:00)
[2025-05-04] MEDS ORDERED: HYDROmorphone HCL 2 MG/ML VL/or syr IV PRN ×2 (13:00→13:15)
[2025-05-04] MEDS ORDERED: hydrALAZINE HCL 20 MG/ML VL IV PRN (13:15)
[2025-05-04] MEDS ORDERED: MORPHINE SULFATE 4 MG/ML SYR/VIAL IV PRN (13:15)
[2025-05-04] MEDS ORDERED: MIDAZOLAM HCL 2MG/2ML 2ml VIAL (1mg/ml) IV PRN (13:15)
[2025-05-04] MEDS: VANCOMYCIN HCL 1000 MG VL ONE (13:20)
[2025-05-04] MEDS: ceFAZolin 1GM/50ML 50 ML IV SCH (14:00)
--- NOTE | 2025-05-04 16:48 | DVHSR ---
APPROVED REPORT EXAM: Two-dimensional and M-mode echocardiogram with Doppler and color Doppler. Blood Pressure: 144/76 mmHg INDICATION Pre-Op CAD/PTCA RISK FACTORS Height: 5'6", Weight: 134 DIMENSIONS LVDd3.7 (3.8-5.7cm)LA (2D)2.9 (1.9-4.0cm)Aortic Root3.0 (2.0-3.7cm) LVDs2.6 (2.5-4.0cm)LA (MM) (1.9-4.0cm)Aortic Cusp Exc1.4 (1.5-2.0cm) EF (%) 60.0 (55-70%)Rt. Atrium3.0 (1.9-4.0cm)Asc. Aorta cm IVSd0.7 (0.7-1.1cm)RV (D) (1.8-2.4cm) PWd0.9 (0.7-1.1cm) Mitral Valve MitralMitral Stenosis E wave1.11m/sMV Mean GR.mmHg A wave1.24m/sMV Peak GR.mmHg E/A ratio0.92D MVAcm2 DECEL [id number] 1/2 Timems Aortic Valve Aortic ValveAortic Stenosis V11.24m/Yvette Mean GR.4mmHg V21.44m/Yvette Peak GR.8mmHg LVOT Diameter1.7 (1.8-2.4cm)Doppler AVA1.95cm2 Pulmonic Valve V21.29m/s Tricuspid Valve TR Velocity2.45m/s [id number] Conclusion lvef 60% by visual estimate normal rv function normal atria no severe valve abnormalities noted
[2025-05-05] VITALS (20 sets, daily range): BP systolic 114–142; BP diastolic 54–91; PULSE 64–96; RESP 16–18; TEMP 97.3–98; O2SAT 98–100
--- NOTE | 2025-05-05 06:55 | DVH ---
CHEST RADIOGRAPH Indication: chf Technique: Single frontal view of the chest was obtained COMPARISON: XY CHEST PORTABLE on DOS: 05/03/25, XY CHEST PORTABLE on DOS: 01/19/24 FINDINGS: Lines and Tubes: None Lungs: Clear Pleura: Stable appearing small left pleural effusion. No pneumothorax. Cardiomediastinal contours: Unremarkable. Atherosclerotic vascular calcifications. Bones: Unremarkable IMPRESSION: 1. Stable appearing small left pleural effusion.
[2025-05-05 07:48] LABS: Hematocrit 30.9 % (36.0-46.0); Hemoglobin 10.6 g/dL (12.2-16.2); Mean Corpuscular Hemoglobin 31.6 pg (28.0-32.0); Mean Corpuscular Volume 91.8 fL (80.0-100.0); Nucleated Red Blood Cells % 0.1 %
[2025-05-05 07:59] LABS: Alanine Aminotransferase 12 U/L (7-40); Albumin 3.7 g/dL (3.2-4.8); Alkaline Phosphatase 109 U/L (46-116); Anion Gap 8 (5-15); BUN/Creatinine Ratio 17.4 (10.0-20.0); Blood Urea Nitrogen 16 mg/dL (9-23); Calcium 9.5 mg/dL (8.7-10.4); Carbon Dioxide 28 mmol/L (20-31); Chloride 104 mmol/L (98-107); Glucose 116 mg/dL (74-106); Potassium 4.0 mmol/L (3.5-5.1); Sodium 140 mmol/L (136-145); Total Protein 5.8 g/dL (5.7-8.2)
[2025-05-05 08:00] LABS: Bilirubin, Total 0.3 mg/dL (0.2-1.0)
--- NOTE | 2025-05-05 08:16 | DVHPN2 ---
Progress Note Date Seen: May 05, 2025 Medical Necessity Reason Pt with a Central, PICC or Fol: Yes The following are medically ne: Guillory Catheter Reason for guillory catheter: Strict I&O Objective vital signs Vital Sign Date Time Temp Pulse Resp B/P (MAP) Pulse Ox O2 Delivery O2 Flow Rate FiO2 05/05/25 06:47 16 100 05/05/25 05:00 97.3 73 123/65 (84) 97.3 05/04/25 20:00 Nasal Cannula* 2 28 Total Intake and Output 05/04/25 05/04/25 05/05/25 15:00 23:00 07:00 Intake Total 100 ml 300 ml 100 ml Output Total 450 ml 150 ml Balance 100 ml -150 ml -50 ml medications Current Medications Medications Dose Ordered Sig/Lee Ann Route Start Time Stop Time Status Last Admin Dose Admin Furosemide 20 mg DAILY PO 05/04/25 10:00 Sertraline HCl 100 mg DAILY PO 05/04/25 10:00 Acetaminophen/ Hydrocodone Bitart 1 tab Q4HP PRN PO 05/03/25 19:30 Acetaminophen 650 mg Q6HP PRN PO 05/03/25 19:30 Morphine Sulfate 2 mg Q4HPRN PRN IV 05/03/25 19:30 05/04/25 10:23 2 MG Enoxaparin Sodium 40 mg DAILY SC 05/05/25 10:00 Sodium Chloride 1,000 ml @ 60 mls/hr [id number] IV 05/04/25 12:15 05/04/25 12:15 60 MLS/HR Ondansetron HCl 4 mg Q4HP PRN IV 05/04/25 13:00 laboratory and microbiology Laboratory Tests 05/05/25 06:37 Test 05/05/25 06:37 Range/Units Serum Glucose 116 H 74-106 mg/dL Microbiology Date/Time Source Procedure Growth Status 05/04/25 07:15 Nose MRSA Screen - Final Complete Problem List/Assessment/Plan Problem List/Assessment/Plan 74 year old female who is s/p Right hip true POD 1 1. pain control 2. WBAT 3. physical therapy 4. DVT ppx 5. clear for discharge from ortho standpoint Plan discussed with: Patient Date of Service: May 05, 2025 Billing Provider: JULEE RAO MD Common Visit Codes: NOT BILLABLE ALFONSO SHARIF NP May 05, 2025 08:16
[2025-05-05] MEDS: ENOXAPARIN SOD 40 MG/0.4 ML SYRINGE SC SCH (09:00)
--- NOTE | 2025-05-05 12:22 | DVHPN2 ---
Progress Note Date Seen: May 05, 2025 Medical Necessity Reason Pt with a Central, PICC or Fol: Yes The following are medically ne: Guillory Catheter Reason for guillory catheter: Strict I&O Subjective Patient reports: No new complaints Review of Systems: HEENT:Normal, CVS:Normal, RESPIRATORY:Normal, GI:Normal, :Normal, MSK:Normal, NEURO:Normal Objective vital signs Vital Sign Date Time Temp Pulse Resp B/P (MAP) Pulse Ox O2 Delivery O2 Flow Rate FiO2 05/05/25 10:47 80 18 100 05/05/25 09:06 97.5 116/64 (81) 97.5 05/05/25 08:00 Nasal Cannula* 2 28 Total Intake and Output 05/04/25 05/04/25 05/05/25 15:00 23:00 07:00 Intake Total 100 ml 300 ml 100 ml Output Total 450 ml 150 ml Balance 100 ml -150 ml -50 ml medications Current Medications Medications Dose Ordered Sig/Lee Ann Route Start Time Stop Time Status Last Admin Dose Admin Furosemide 20 mg DAILY PO 05/04/25 10:00 05/05/25 08:59 20 MG Sertraline HCl 100 mg DAILY PO 05/04/25 10:00 05/05/25 09:00 100 MG Acetaminophen/ Hydrocodone Bitart 1 tab Q4HP PRN PO 05/03/25 19:30 Acetaminophen 650 mg Q6HP PRN PO 05/03/25 19:30 Morphine Sulfate 2 mg Q4HPRN PRN IV 05/03/25 19:30 05/05/25 08:19 2 MG Enoxaparin Sodium 40 mg DAILY SC 05/05/25 10:00 05/05/25 09:00 40 MG Sodium Chloride 1,000 ml @ 60 mls/hr [id number] IV 05/04/25 12:15 05/05/25 11:06 60 MLS/HR Ondansetron HCl 4 mg Q4HP PRN IV 05/04/25 13:00 Examination: GENERAL:Normal, HEENT:Normal, NECK:Normal, LUNGS:Normal, CVS:Normal, ABDOMEN:Normal, MSK:Normal, SKIN:Normal, NEURO:Normal, :Normal laboratory and microbiology Laboratory Tests 05/05/25 06:37 Test 05/05/25 06:37 Range/Units Serum Glucose 116 H 74-106 mg/dL Microbiology Date/Time Source Procedure Growth Status 05/04/25 07:15 Nose MRSA Screen - Final Complete Problem List/Assessment/Plan Problem List/Assessment/Plan #1 right femur fracture: s/p surg #2 cad s/p stents #3 hyperlipidemia #4 chronic diastolic heart failure #5 depression/anxiety #6 encephalopathy ?dementia advance care planning- full code- time spent 18 mins Plan discussed with: Patient Date of Service: May 05, 2025 Billing Provider: ADILENE PAUL MD Common Visit Codes: [id number] INP/OBS CARE(HIGH) Secondary Visit Codes: [id number] CARE PLAN 30 MINUTES ADILENE PAUL MD May 05, 2025 12:22
--- NOTE | 2025-05-05 15:59 | DVHOP2 ---
Operative Report - 2 Report Details Date: 05/04/25 Preop Diagnosis: Displaced right femoral neck fracture Postop Diagnosis: as above Surgeon: Shaji Rao MD Tax Compliance Representative: Emeka EVANS Anesthesiologist: Jaime POLLARD Anesthesia: Regional Implant: [employer] Bipolar size 46 Consent: The patient was informed of the risks and benefits of the procedure. These include but are not limited to complications of anesthesia, postoperative infection, incomplete relief of symptoms, recurrence of symptoms, damage to blood vessels, nerves and tendons, deep venous thrombosis, pulmonary embolism and possible need for repeat surgery in the future. Estimated Blood Loss: 300 cc Name of Procedure Performed Right hip hemiarthroplasty Procedure Details Procedure Details: INDICATION: I had a long discussion with the patient regarding the plan, the expected outcome, the risks, benefits, and alternatives of surgery. The risks include, but are not limited to, infection (which may require future surgery and removal of implants) , bleeding (which may require a transfusion), damage to nerves, arteries, veins, tendons, muscles and other adjacent structures. Also discussed the possibilities of dislocation, leg-length discrepancy, intraoperative fractures, implant loosening, heterotopic bone formation, and revision for variety of reasons, and medical complications etc. This was discussed at length and consent has been obtained. DESCRIPTION OF PROCEDURE: In the preoperative holding area, the consent was reviewed and the appropriate extremity was verified by the patient and marked with my initials. The patient was then transferred to the operating theatre. Appropriate anesthetia was induced. All bony prominences were well padded. A time out was performed verifying the side and site of surgery according to standard protocol. Preoperative antibiotics were given. Tranexamic acid was given. The patient was then placed in the lateral decubitus position and fixed with rigid pelvic fixation. All bony prominences were well padded and an axillary roll was placed. The affected hip area was then prepped and draped in the usual sterile fashion. We made a standard posterolateral incision sharply through the skin and carried our dissection down through subcutaneous tissue to the underlying fascia achieving hemostasis where necessary. We incised the fascia in line with our i ncision. We identified and protected the sciatic nerve. We took down the external rotators and hip capsule from their insertion into the greater trochanter, tagged them and retracted them posteriorly for further protection of the sciatic nerve. We then dislocated the femoral head and performed an osteotomy of the femoral neck in accordance with our pre-operative plan. Attention was then turned to the femur. We used a box osteotome followed by a canal finder to gain entry to the canal. Intramedullary contents were suctioned and care was taken to ensure they did not touch the tissues. We sequentially reamed until good cortical contact, then broached up to out final size. We trialed with the appropriate femoral neck and head and reduced the hip. The hip was taken through a full range of motion. The hip soft tissues were examined in extension and external rotation, the anterior capsule and IT band were palpated, and combined anteversion was determined to be 40 degrees. The hip was stable at maximum flexion, at 90 degrees of flexion and 45 degrees of internal rotation and the position of sleep. Leg lengths were restored as shown. The hip was then dislocated and trial components removed. We copiously irrigated the wound and impacted the final femoral stem into position. The femoral head was impacted onto a clean and dry trunion and confirmed to be seated. The hip was reduced ensuring to tissues in the acetabular cup. We again brought it through a full functional range of motion and there was no evidence for dislocation, instability, or impingement. The checkpoint was removed. A dilute betadine solution (17.5mL in 500mL saline) was used to wash the joint and left to sit for 3 minutes. This was then irrigated out with copious amounts of pulse lavage. We sprinkled 1g vancomycin powder below the fascia and 1g above the fascia. We copiously irrigated the wound and soft tissues. The short external rotators and capsule were repaired to the greater trochanter through drill holes, and the quadratus was repaired. We palpated the sciatic nerve in continuity without tension. The fascia was closed with vicryl and a barbed suture. We closed over the fascia with vicryl suture and re-approximated the skin with jody. A sterile dressing was placed. We returned the patient to the supine position. We verified all lower extremity compartments were soft and compressible and that we had intact distal pulses and checked our leg length yazidism. The patient was then transferred to the recovery room in stable condition. Condition Good Disposition Still a Patient SHAJI RAO MD May 05, 2025 15:59
[2025-05-05] MEDS: HYDROcodone-ACET 5/325MG TAB PO PRN (23:37)
[2025-05-06 05:00] VITALS: BP 158/65; PULSE 81; RESP 18; TEMP 97.6; O2SAT 98
[2025-05-06 08:00] VITALS: PULSE 80; RESP 18; O2SAT 98
[2025-05-06 09:00] VITALS: BP 147/78; PULSE 74; RESP 20; TEMP 98.3; O2SAT 95
[2025-05-06] MEDS: CLOPIDOGREL BISULFATE 75 MG TAB PO SCH (09:26)
--- NOTE | 2025-05-06 11:50 | DVHDS2 ---
Discharge Summary Date of Admission May 03, 2025 at 19:17 Date of Discharge: May 06, 2025 Labs/Diagnostic Data: Laboratory Results Test 05/05/25 06:37 05/03/25 19:34 05/03/25 18:04 White Blood Count 11.3 10^3/uL (4.4-10.8) Red Blood Count 3.37 10^6/uL (4.0-5.20) Hemoglobin 10.6 g/dL (12.2-16.2) Hematocrit 30.9 % (36.0-46.0) Mean Corpuscular Volume 91.8 fL (80.0-100.0) Mean Corpuscular Hemoglobin 31.6 pg (28.0-32.0) Mean Corpuscular Hemoglobin Concent 34.4 g/dL (32.0-36.0) Red Cell Distribution Width 15.1 % (11.8-14.3) Platelet Count 263 10^3/uL (140-450) Mean Platelet Volume 7.7 fL (6.9-10.8) Neutrophils (%) (Auto) 78.4 % (37.0-80.0) Lymphocytes (%) (Auto) 12.4 % (10.0-50.0) Monocytes (%) (Auto) 8.4 % (0.0-12.0) Eosinophils (%) (Auto) 0.7 % (0.0-7.0) Basophils (%) (Auto) 0.1 % (0.0-2.0) Neutrophils # (Auto) 8.9 10 ^3/uL (1.6-8.6) Lymphocytes # (Auto) 1.4 10 ^3/uL (0.4-5.4) Monocytes # (Auto) 1.0 10 ^3/uL (0-1.3) Eosinophils # (Auto) 0.1 10 ^3/uL (0-0.8) Basophils # (Auto) 0 10 ^3/uL (0-0.2) Nucleated Red Blood Cells 0.1 % Sodium Level 140 mmol/L (136-145) Potassium Level 4.0 mmol/L (3.5-5.1) Chloride Level 104 mmol/L (98-107) Carbon Dioxide Level 28 mmol/L (20-31) Anion Gap 8 (5-15) Blood Urea Nitrogen 16 mg/dL (9-23) Creatinine 0.92 mg/dL (0.550-1.02) Glomerular Filtration Rate Calc 65 mL/min (>90) BUN/Creatinine Ratio 17.4 (10.0-20.0) Serum Glucose 116 mg/dL (74-106) Calcium Level 9.5 mg/dL (8.7-10.4) Total Bilirubin 0.3 mg/dL (0.2-1.0) Aspartate Amino Transferase (AST) 27 U/L (13-40) Alanine Aminotransferase (ALT) 12 U/L (7-40) Alkaline Phosphatase 109 U/L (46-116) Total Protein 5.8 g/dL (5.7-8.2) Albumin 3.7 g/dL (3.2-4.8) Prothrombin Time 10.3 sec (9.3-11.8) Prothrombin Time INR 0.97 (0.9-1.15) Activated Partial Thromboplast Time 25.0 SEC (24.5-34.5) Urine Color Yellow (Yellow) Urine Clarity Clear (Clear) Urine pH 7.0 (5.0-9.0) Urine Specific [place] 1.013 (1.001-1.035) Urine Protein Negative (Negative) Urine Ketones Negative (Negative) Urine Blood Negative /uL (Negative) Urine Nitrite Negative (Negative) Urine Bilirubin Negative (Negative) Urine Urobilinogen Normal mg/dL (Negative) Urine Leukocyte Esterase Negative /uL (Negative) Urine RBC 3 /hpf (0 - 4) Urine Microscopic WBC 2 /HPF (0-5) Urine Squamous Epithelial Cells Few /hpf (<5) Urine Bacteria None seen /hpf (None Seen) Urine Glucose Normal mg/dL (Normal) Other Laboratory Tests 05/05/25 06:37 Brief Hx & Hospital Course: see dictated note Condition at Discharge: Guarded Final Diagnosis/Problems List right hip surgery Discharge Disposition: Hospice - Home Discharge Instruct/Medications Diet: Cardiac 2g Na,low cholest Activity: No Restrictions, As Tolerated Follow Up/Referral: fu with hospice/ortho Medications: resume home meds Scheduled Atorvastatin Calcium (Atorvastatin Calcium), 1 TAB PO DAILY, (Reported) Buspirone Hcl (Buspirone Hcl), 15 MG PO Q12HR, (Reported) Cephalexin (Keflex Capsule), 500 MG PO BID Clonazepam (KlonoPIN TABLET), 0.5 TAB PO HS, (Reported) Clopidogrel Bisulfate (Clopidogrel), 75 MG PO DAILY, (Reported) Folic Acid (Folic Acid), 2.5 MG PO BID, (Reported) Furosemide (Furosemide), 40 MG PO DAILY, (Reported) Hydrocodone-Acetaminophen (Hydrocodone Bitartrate/AC 10-325 mg), 1 TAB PO TID, (Reported) Ibuprofen (Ibuprofen), 800 MG PO TIDPRN, (Reported) Lorazepam (Ativan), 0.5 MG PO BID Lorazepam (Lorazepam), 1 TAB PO TID, (Reported) Meloxicam (Meloxicam), 1 TAB PO DAILY, (Reported) Multiple Vitamins W/ Minerals (Centrum), 1 OR DAILY, (Reported) Quetiapine Fumerate (Quetiapine Fumarate), 150 MG PO BID, (Reported) Sertraline Hcl (Sertraline Hcl), 100 MG PO DAILY, (Reported) Zolpidem Tartrate (Zolpidem Tartrate Er), 10 MG PO HS, (Reported) Scheduled PRN Alprazolam (Alprazolam), 0.5 MG PO BIDP PRN for ANXIETY, (Reported) Baclofen (Baclofen), 20 MG PO TID PRN Ibuprofen Micronized (Motrin Tablet), 400 MG PO TID PRN for PAIN SCALE 1 THRU 6, (Reported) Oxycodone W/ Acetaminophen (Percocet 5/325MG), 1 TAB PO Q8HP PRN Discharge Statement: "Patient was advised to return to the ER or call 911 if any headaches, dizziness, shortness of breath, chest pain, abdominal pain, bleeding, fevers, or worsening of medical condition. Patient was counseled about treatment plan, medications, possible side effects, patientverbalized understanding. All questions were answered to the best of my ability. This discharge took greater then 30 minutes in planning, reviewing documentation, counseling the patient, and discussing with other team members." ASSESSMENT ASSESSMENT Assessment right hip surgery Date of Service: May 06, 2025 Billing Provider: ADILENE PAUL MD Common Visit Codes: 56034-ANX/OBS DISCH DAY >30min ADILENE PAUL MD May 06, 2025 11:50
--- NOTE | 2025-05-06 12:05 | DVHDS ---
DATE OF DISCHARGE: 05/06/2025 The patient is a 74-year-old lady who was admitted after she had right hip pain after a fall. She has history of dementia, coronary artery disease, hypertension, and depression. HOSPITAL COURSE: The patient had a femur x-ray that showed subcapital fracture of the right proximal femur. The patient underwent surgery by Dr. Pierson on 05/05/2025. The patient will now be discharged back under hospice with medications as per hospice. She will follow up with her primary and Orthopedics. FINAL DIAGNOSES: * Right femur fracture, status post surgery. * Coronary artery disease with history of stents. * Hyperlipidemia. * Chronic diastolic heart failure. * Depression/anxiety. * Encephalopathy with dementia. Time spent in discharge planning and review of plan with the patient and nursing was 38 minutes. MD GUNNAR Castaneda/DOMINICK TID: [id number] RECEIPT: [id number]
[2025-05-06 12:45] VITALS: BP 154/81; PULSE 77; RESP 20; TEMP 98.5; O2SAT 95
[2025-05-06 13:31] VITALS: BP 138/75; PULSE 75; RESP 20; TEMP 36.9; O2SAT 96
== END 2025-05-06 16:13 | disposition hospice, home (50) | DRG 521 ==
LOC: ER 14:02 → OVERFLOW 19:17 → WEST WING 21:20 → TELE-WESTW 05-05 13:19
PROVIDERS: ADMIT Internal Medicine; ATTEND Internal Medicine
PROC: 0SRR01Z Replacement of Right Hip Joint, Femoral Surface with Metal Synthetic Substitute, Open Approach (ICD-10-PCS; principal; 2025-05-04 12:14)
DX: S72.011A Unspecified intracapsular fracture of right femur, initial encounter for closed fracture (principal); G93.41 Metabolic encephalopathy; I50.32 Chronic diastolic (congestive) heart failure; F03.93 Unspecified dementia, unspecified severity, with mood disturbance; F03.94 Unspecified dementia, unspecified severity, with anxiety; N17.9 Acute kidney failure, unspecified; E78.5 Hyperlipidemia, unspecified; F17.210 Nicotine dependence, cigarettes, uncomplicated; I25.10 Atherosclerotic heart disease of native coronary artery without angina pectoris; F20.9 Schizophrenia, unspecified; F32.A Depression, unspecified; I11.0 Hypertensive heart disease with heart failure; Z79.1 Long term (current) use of non-steroidal anti-inflammatories (NSAID); Z79.899 Other long term (current) drug therapy; Z79.2 Long term (current) use of antibiotics; Z95.5 Presence of coronary angioplasty implant and graft; Z82.0 Family history of epilepsy and other diseases of the nervous system; Z82.3 Family history of stroke; W18.39XA Other fall on same level, initial encounter; Y93.89 Activity, other specified; Y92.89 Other specified places as the place of occurrence of the external cause; Y99.8 Other external cause status
CPT/HCPCS: 36415; 71045; 73502; 73590; 80048; 80053; 81001; 85025; 85610; 85730; 86850; 86900; 86901; 87081; 93306; 96361; 96374; 96375; 97110; 97116; 97163; 99291; G0378; J1100; J1885; J2250; J2405; J2704; J3490